=== PATIENT | male | born 1995 | race Caucasian/White ===

== ENCOUNTER → 2019-03-13 08:43 | Outpatient (BNVA) | payer MEDICAID, SELFPAY | PROVIDERS: Family Provider Nurse Practitioner; PCP Nurse Practitioner; Visit Provider Psychiatry & Neurology Psychiatry | DX: F90.1 Attention-deficit hyperactivity disorder, predominantly hyperactive type (principal); F84.0 Autistic disorder | CPT/HCPCS: 99213 ==

== ENCOUNTER → 2019-03-27 10:14 | Outpatient (BNVA) | payer MEDICAID, SELFPAY | PROVIDERS: Family Provider Nurse Practitioner; PCP Nurse Practitioner; Visit Provider Nurse Practitioner | DX: F90.1 Attention-deficit hyperactivity disorder, predominantly hyperactive type (principal); Z00.00 Encounter for general adult medical examination without abnormal findings; Z11.3 Encounter for screening for infections with a predominantly sexual mode of transmission | CPT/HCPCS: 80053; 80178; 85025; 86592 ==

== ENCOUNTER → 2019-06-01 07:26 | Outpatient (BNVA) | payer MEDICAID, SELFPAY | PROVIDERS: Family Provider Nurse Practitioner; PCP Nurse Practitioner; Visit Provider Psychiatry & Neurology Psychiatry | DX: F84.0 Autistic disorder (principal); F90.1 Attention-deficit hyperactivity disorder, predominantly hyperactive type | CPT/HCPCS: 99212 ==

== ENCOUNTER 2019-08-06 12:15 | Emergency (ER) | payer MEDICAID, SELFPAY | END 2019-08-06 18:10 | disposition admitted as inpatient to this hospital (09) | LOC: ER 08-07 02:24 | PROVIDERS: Emergency Provider Family Medicine; PCP Nurse Practitioner | DX: G40.801 Other epilepsy, not intractable, with status epilepticus (principal); J96.00 Acute respiratory failure, unspecified whether with hypoxia or hypercapnia; F84.0 Autistic disorder | CPT/HCPCS: 31500; 36415; 36600; 70450; 71045; 80053; 80306; 80307; 81001; 82803; 83605; 84145; 85025; 86140; 87040; 87070; 87205; 87635; 93005; 94002; 94799; 96365; 96366; 96367; 96368; 96375; 99284; 99291; J0330; J2704; J3490 ==

== ENCOUNTER 2019-08-06 12:15 | Inpatient (IN) | payer MEDICAID, SELFPAY ==
[2019-08-06] VITALS (31 sets, daily range): BP systolic 91–150; BP diastolic 10–89; PULSE 75–136; RESP 8–27; O2SAT 93–100
--- NOTE | 2019-08-06 12:26 | XRR_ITS ---
PROCEDURE INFORMATION: Exam: XR Chest, 1 View Exam date and time: 08/06/2019 12:53 PM Age: 24 years old Clinical indication: Other: Grand mal seizure TECHNIQUE: Imaging protocol: XR of the chest Views: 1 view. COMPARISON: No relevant prior studies available. FINDINGS: Lungs: Unremarkable. No consolidation. Pleural space: Unremarkable. No pleural effusion. No pneumothorax. Heart/Mediastinum: Unremarkable. No cardiomegaly. Bones/joints: Unremarkable. XR/XR chest 1V portable [id number] IMPRESSION: No acute findings.
--- NOTE | 2019-08-06 12:27 | ECG_ITS ---
[facility] Test Date: 2019-08-06 Pat Name: Bj Herron Department: Room: Gender: Male Chief Vendor Quality: : 1995 Requested By: Yessica Ramírez I Order Number: [id number] Clifford MD: Ramez Soto M.D. Measurements Intervals [place] Rate: 136 P: 48 MN: 126 QRS: -1 QRSD: 82 T: 46 QT: 284 QTc: 428 Interpretive Statements SINUS TACHYCARDIA POSSIBLE RIGHT VENTRICULAR CONDUCTION DELAY [RSR (QR) IN V1/V2] ABNORMAL RHYTHM ECG No previous ECG available for comparison Electronically Signed On 08-06-2019 21:13:56 CDT by Ramez Soto M.D. [email or web address] Over Heremercy health st. rita's medical centerFastPay/store/[id number]
--- NOTE | 2019-08-06 12:28 | ED_ITS ---
HPI - Seizure General: Chief Complaint: Seizure Stated Complaint: GRAND MAL SEIZURE Time Seen by Provider: 08/06/19 12:16 Source: EMS Mode of arrival: EMS Limitations: altered mental status History of Present Illness: HPI Narrative: Patient was brought in by EMS. He is a 24-year-old severely autistic gentleman who lives in a intermediate who had an episode of generalized tonic-clonic seizure today. According to them intermediate seizure lasted about 20 minutes. And he was still seizing when the ambulance got there. He was given 2 mg intravenously of lorazepam which aborted the seizure. Patient has been postictal/under the effect of sedation since. He has been hypoxic and needed oxygen in the ambulance. He has also been tachycardic. He had a temperature of about 101 per EMS. MD complaint: seizure Description of Episode: tonic-clonic movement Review of Systems General: Reports: ROS unobtainable due to mental status [facility] ED PFSH: Medical History ADHD (attention deficit hyperactivity disorder), predominantly hyperactive impulsive type Autism Surgical History No history of previous surgery Family History Other Diabetes Hypertension Social History Smoking and tobacco status: unknown if ever smoked Second hand smoke exposure: No Smoking risk assessment/counseling performed?: No Alcohol intake: never Desire information about alcohol rehabilitation?: No Counseling given: No Desire information about substance/drug rehabilitation?: No Counseling given: No Adopted: No Caregiver/support person: Yes Lives independently: No Household members: caregiver Housing: House Marital status: Single Number of children: 0 Highest education level completed: High School Graduate service: No Current occupational status: employed Current occupation: [employer] Pets and animals: No History of recent travel: No Sexually active: No Current gender identity: Male Special jerson needs: No Financial difficulty paying for basics: Not Very Hard Physical Exam Const: COMMON NORMALS: no acute distress, average body habitus, no limitations, healthy appearing and well nourished HENMT: COMMON NORMALS: normocephalic, atraumatic and moist oral mucous membranes HEAD & SCALP: normocephalic and atraumatic Eye: COMMON NORMALS: Equal, round and reactive pupils present, EOMs intact bilaterally, conjunctivae normal and no scleral icterus CONJUNCTIVA: Yes conjunctivae normal PUPIL: Yes Equal, round and reactive pupils present Neck/C-Spine: COMMON NORMALS: full ROM, supple, no meningeal signs, no JVD and No carotid bruits Chest: COMMONS NORMALS: normal inspection of the chest and normal palpation of entire chest wall Resp: COMMON NORMALS: normal respiratory effort, No retractions, No use of accessory muscles, clear to auscultation bilaterally and percussion normal AUSCULTATION: clear to auscultation bilaterally PERCUSSION: percussion normal Cardio: COMMON NORMALS: no JVD, regular rate, regular rhythm, S1 normal heart sound present, S2 normal heart sound present, No gallops present (Cardio), No clicks present (Cardio), No murmurs present (Cardio), No rub (Cardio) and Peripheral pulses 2+ throughout RATE: regular rate RHYTHM: regular rhythm HEART SOUNDS: S1 normal heart sound present and S2 normal heart sound present PERIPHERAL PULSES: Peripheral pulses 2+ throughout GI: COMMON NORMALS: Normal to inspection, nondistended, normoactive bowel sounds present, Soft to palpation, non-tender, No hepatosplenomegaly present, no masses and no bruits PALPATION: Yes Soft to palpation and Yes No hepatosplenomegaly present : COMMON NORMALS: Yes no CVA tenderness BLADDER/KIDNEY EXAM: Yes no CVA tenderness Back/Pelvis: COMMON NORMALS: no CVA tenderness Extremity: COMMON NORMALS: normal to inspection, full ROM, capillary refill normal, no calf tenderness and no pedal edema Neuro: VIVI COMA SCALE: document GCS findings Celoron coma scale eye opening: None Celoron coma scale verbal response: None Vivi coma scale motor response: Normal flexion Celoron coma scale total score: 6 MENINGEAL SIGNS: Yes no meningeal signs OTHER: Patient withdraws to pain only on his left upper and lower extremity. He does not move his right upper and lower extremity, query Fede's paralysis Skin: COMMON NORMALS: no rashes or lesions noted, no wounds, turgor normal, no jaundice, no petechiae and no mottling GENERAL SKIN EXAM: no rashes or lesions noted and turgor normal Procedures Intubation Time out performed: Yes sedative: Etomidate Mg Given: 27 paralytic: Succinylcholine Mg Given: 180 Laryngoscope: Patricia (Video-assisted) ET Tube Size: 8 ET Tube Uncuffed: Yes Tube Secured Depth (cm): 25 Tube Secured Location: lips Tube Placement Confirmation: visualized tube passing through cords, equal breath sounds bilaterally, no breath sounds over epigastrium and confirmation by capnometry Patient Tolerated Procedure: well Intubation Complications: none Course Consultations: Consultation #1: Dr. Das, hospitalist she kindly accepted the patient to her service Vital Signs: Vital signs: Vital Signs Pulse Rate 83 08/06/19 22:15 Respiratory Rate 12 08/06/19 22:15 Blood Pressure 116/79 08/06/19 22:15 Pulse Oximetry 100 08/06/19 22:15 MDM - Seizure MDM Narrative: Medical decision making narrative: 24-year-old gentleman who presented to the emergency department following an episode of status epilepticus. Seizure was aborted with 2 mg of intravenous lorazepam. The patient remained significantly tachycardic in the ED and his GCS was 6 on arrival. He was also hypoxic and hypercapnic and a decision was made to emergently intubate this patient as he could not protect his airway and he was in respiratory failure. The patient was admitted to the ICU for further evaluation and management. On the advice of the neurologist intravenous Keppra was started. Head CT negative other labs are unremarkable, initial lumbar puncture does not appear to be meningitic. Repeat blood gas showed marked improvement in his pH which became normal as well as his CO2. Medical Records: Attestation: I reviewed the patient's medical records. Lab Data: Attestation: I reviewed the patient's lab results. Labs: Lab Results 08/06/19 08/06/19 08/06/19 Range/Units 12:43 12:43 12:43 WBC (4.0-10.0) 10^3/ uL RBC (4.1-5.3) 10^6/u L Hgb (11.7-16.6) g/dL Hct (42.0-52.0) % MCV (80-94) fL MCH (28.0-34.0) pg MCHC (30.0-36.0) g/dL RDW (12.1-15.1) % Plt Count (130-400) 10^3/c mm MPV (7.4-10.4) fL Neut % (Auto) % Lymph % (Auto) % Real % (Auto) % Eos % (Auto) % Baso % (Auto) % Neut # (Auto) (1.8-7.7) 10^3/u L Lymph # (Auto) (0.8-4.8) 10^3/u L Real # (Auto) (0.2-0.9) 10^3/u L Eos # (Auto) (0.0-0.8) 10^3/u L Baso # (Auto) (0.0-0.1) 10^3/u L Nucleated RBC % (a uto) % Nucleated RBCs # /100WBC Specimen Type Arterial Sample Site Brachial, right ABG pH 7.18 L* (7.35-7.45) ABG pCO2 64.7 H* (35-45) mmHg ABG pO2 99.8 (80.0-100.0) mmH g ABG HCO3 23.9 (22-26) mmol/L ABG Base Excess -6.1 L (-2.0-2.0) mmol/ L Jostin Test Pos Hematocrit 48.9 (42-52) % O2 Delivery Device Nc O2 Liters/Min 2.0 % FiO2 28.0 % Claim Rep ID ed Sodium (136-145) mmol/L Potassium (3.5-5.1) mmol/L Chloride (98-107) mmol/L Carbon Dioxide (22-29) mmol/L Anion Gap (5-19) BUN (6-20) mg/dL Creatinine (0.7-1.2) mg/dL GFR Calculation (90-130) mL/min Glucose (65-115) mg/dL Calculated Osmolal ity (285-295) mOsm/k g Lactate (0.5-2.2) mmol/L Calcium (8.5-10.5) mg/dL Total Bilirubin (0.15-1.2) mg/dL AST (0-40) U/L ALT (0-41) U/L Alkaline Phosphata se (40-130) IU/L C-Reactive Protein (0.0-4.9) mg/L Total Protein (6.6-8.7) g/dL Albumin (3.5-5.2) g/dL Globulin (1.3-4.6) g/dL Procalcitonin (0-0.5) ng/mL Urine Color Yellow (Yellow) Urine Appearance Clear (CLEAR) Urine pH 6 (5-7) Ur Specific Gravit y 1.020 (1.005-1.030) Urine Protein Trace (Negative) Urine Glucose (UA) Norm (Normal) Urine Ketones 1+ H (Negative) Urine Blood Trace H (Negative) Urine Nitrate Negative (Negative) Urine Bilirubin Neg (NEGATIVE) Urine Urobilinogen Neg (Negative) mg/dL Ur Leukocyte Magdalena ase Negative (Negative) Urine RBC 0-4 H (0-2) /hpf Urine WBC None (0-5) /hpf Ur Squamous Epith Cells None (0-5) Amorphous Sediment Not Reportable Urine Bacteria Trace (NONE) Hyaline Casts 0-4 H Urine Mucus 2+ Salicylates (3-10) mg/dL Urine Opiates Scre en Negative (Negative) ng/mL Acetaminophen (10-30) ug/mL Ur Barbiturates Sc reen Negative (Negative) ng/mL Ur Phencyclidine S crn Negative (Negative) ng/mL Ur Amphetamines Sc reen Negative (Negative) ng/mL U Benzodiazepines Scrn Negative (Negative) ng/mL Urine Cocaine Scre en Negative (Negative) ng/mL U Marijuana (THC) Screen Negative (Negative) ng/mL Ethyl Alcohol (0-10) mg/dL 08/06/19 08/06/19 08/06/19 Range/Units 13:09 13:09 13:09 WBC 12.3 H (4.0-10.0) 10^3/ uL RBC 5.57 H (4.1-5.3) 10^6/u L Hgb 15.6 (11.7-16.6) g/dL Hct 47.9 (42.0-52.0) % MCV 86.0 (80-94) fL MCH 28.0 (28.0-34.0) pg MCHC 32.6 (30.0-36.0) g/dL RDW 12.2 (12.1-15.1) % Plt Count 122 L (130-400) 10^3/c mm MPV 10.9 H (7.4-10.4) fL Neut % (Auto) 83.8 % Lymph % (Auto) 4.6 % Real % (Auto) 9.2 % Eos % (Auto) 0.1 % Baso % (Auto) 0.2 % Neut # (Auto) 10.3 H (1.8-7.7) 10^3/u L Lymph # (Auto) 0.6 L (0.8-4.8) 10^3/u L Real # (Auto) 1.1 H (0.2-0.9) 10^3/u L Eos # (Auto) 0.0 (0.0-0.8) 10^3/u L Baso # (Auto) 0.0 (0.0-0.1) 10^3/u L Nucleated RBC % (a uto) 0 % Nucleated RBCs # 0.0 /100WBC Specimen Type Sample Site ABG pH (7.35-7.45) ABG pCO2 (35-45) mmHg ABG pO2 (80.0-100.0) mmH g ABG HCO3 (22-26) mmol/L ABG Base Excess (-2.0-2.0) mmol/ L Jostin Test Hematocrit (42-52) % O2 Delivery Device O2 Liters/Min % FiO2 % Claim Rep ID Sodium 140 (136-145) mmol/L Potassium 4.5 (3.5-5.1) mmol/L Chloride 105 (98-107) mmol/L Carbon Dioxide 21 L (22-29) mmol/L Anion Gap 18.5 (5-19) BUN 7 (6-20) mg/dL Creatinine 0.6 L (0.7-1.2) mg/dL GFR Calculation 165.5 H (90-130) mL/min Glucose 178 H (65-115) mg/dL Calculated Osmolal ity 290 (285-295) mOsm/k g Lactate 1.8 (0.5-2.2) mmol/L Calcium 8.2 L (8.5-10.5) mg/dL Total Bilirubin 0.3 (0.15-1.2) mg/dL AST 25 (0-40) U/L ALT 23 (0-41) U/L Alkaline Phosphata se 47 (40-130) IU/L C-Reactive Protein 0.3 (0.0-4.9) mg/L Total Protein 6.8 (6.6-8.7) g/dL Albumin 4.0 (3.5-5.2) g/dL Globulin 2.8 (1.3-4.6) g/dL Procalcitonin 0.04 (0-0.5) ng/mL Urine Color (Yellow) Urine Appearance (CLEAR) Urine pH (5-7) Ur Specific Gravit y (1.005-1.030) Urine Protein (Negative) Urine Glucose (UA) (Normal) Urine Ketones (Negative) Urine Blood (Negative) Urine Nitrate (Negative) Urine Bilirubin (NEGATIVE) Urine Urobilinogen (Negative) mg/dL Ur Leukocyte Magdalena ase (Negative) Urine RBC (0-2) /hpf Urine WBC (0-5) /hpf Ur Squamous Epith Cells (0-5) Amorphous Sediment Urine Bacteria (NONE) Hyaline Casts Urine Mucus Salicylates < 0.3 L (3-10) mg/dL Urine Opiates Scre en (Negative) ng/mL Acetaminophen < 5.0 L (10-30) ug/mL Ur Barbiturates Sc reen (Negative) ng/mL Ur Phencyclidine S crn (Negative) ng/mL Ur Amphetamines Sc reen (Negative) ng/mL U Benzodiazepines Scrn (Negative) ng/mL Urine Cocaine Scre en (Negative) ng/mL U Marijuana (THC) Screen (Negative) ng/mL Ethyl Alcohol < 10 (0-10) mg/dL Imaging Data^: CT Head: Radiologist's impression: [place] [address] CT Scan Report Signed Patient: Bj Herron Jd #: [id number] : 1995Acct#:[id number] Age/Sex: 24 / MADM Date: 08/06/19 Loc: ERRoom/Bed: Attending Dr: Ordering Provider/Ordering MD: Yessica Ramírez MD, [facility] [place] Date of Service: 08/06/19 Procedure(s): CT head wo con* [id number] Accession Number(s): [id number] Report Number: [id number] PROCEDURE INFORMATION: Exam: CT Head Without Contrast Exam date and time: 08/06/2019 12:45 PM Age: 24 years old Clinical indication: Patient HX: History of seizures; Additional info: Seizure TECHNIQUE: Imaging protocol: Computed tomography of the head without contrast. Axial, coronal and sagittal reformatted images were created and reviewed. Radiation optimization: All CT scans at this facility use at least one of these dose optimization techniques: automated exposure control; mA and/or kV adjustment per patient size (includes targeted exams where dose is matched to clinical indication); or iterative reconstruction. COMPARISON: No relevant prior studies available. RADIATION DOSE METRICS: Total DLP (mGy-cm): 1484.92 FINDINGS: Brain: No CT evidence of acute intracranial hemorrhage or acute territorial infarction. No significant mass effect or midline shift. Basal cisterns patent. Ventricles: Normal in size and configuration. Bones/joints: No acute osseous abnormality. Sinuses: Mild ethmoid mucosal thickening. Mastoid air cells: Grossly unremarkable. Soft tissues: Grossly unremarkable. CT/CT head wo con* [id number]: 1[address] No CT evidence of acute intracranial pathology. 2. Additional findings, as above. Radiation Dose CTDIVOL = (mGy): DLP = 1484.92 (mGy-cm) Dictated By:Vinicius Haines MD Signed By:Vinicius Haines MDSigned Date/Time:08/06/191515 DD/ 1515 CXR: Radiologist's impression: [place] [address] XRay Report Signed Patient: Bj Herron #: [id number] : 1995Acct#:[id number] Age/Sex: 24 / MADM Date: 08/06/19 Loc: ERRoom/Bed: Attending Dr: Ordering Provider/Ordering MD: Yessica Ramírez MD, [facility] [place] Date of Service: 08/06/19 Procedure(s): XR chest 1V portable [id number] Accession Number(s): [id number] Report Number: [id number] PROCEDURE INFORMATION: Exam: XR Chest, 1 View Exam date and time: 08/06/2019 2:37 PM Age: 24 years old Clinical indication: Device placement; Additional info: Post intubation TECHNIQUE: Imaging protocol: XR of the chest Views: 1 view. COMPARISON: CR XR chest 1V portable [id number] 08/06/2019 12:43 PM FINDINGS: Lungs: Unremarkable. No consolidation. Pleural space: Unremarkable. No pleural effusion. No pneumothorax. Heart/Mediastinum: Unremarkable. No cardiomegaly. Bones/joints: Unremarkable. Endotracheal tube is in place the tip is 13 mm above the tammy NG tube extends into the stomach XR/XR chest 1V portable [id number] IMPRESSION: No acute findings. Endotracheal tube is in place as described. NG tube is in the stomach Dictated By:Thanh Azul Signed By:Krystal Azul Date/Time:08/06/191456 DD/ 54 EKG Data^: EKG 1: Attestation: I personally reviewed and interpreted this EKG as follows: EKG interpretation date: 08/06/19 EKG interpretation time: 12:31 Prior EKG tracings: not available for review Interpretation: Sinus tachycardia. Heart rate [address] changes. Normal axis. Critical Care Time Critical Care Time: Critical Care Time: Yes Total Critical Care Time: 30 Attestation: This case had a high probability of a clinically significant, sudden, or life threatening deterioration of this patient's condition which required my full and direct attention, intervention and personal management. Discharge Plan Discharge Patient Disposition: Admitted As Inpatient Admit Provider: Asiya Das Clinical Impression: Status epilepticus, Acute respiratory failure Condition: Stable Interventions: ED Discharge Assessment Last Done: 08/06/19 18:17 ED Charges Last Done: 08/06/19 18:17 Discharge Date/Time: 08/06/19 18:10 Coding Level of Care Code ED [place] [facility] for Chg Fwd Exam Comprehensive
[2019-08-06 12:54] LABS: ABG PCO2 64.7 mmHg (35-45); ABG PH Result 7.18 (7.35-7.45); Arterial Blood Gas Hematocrit 48.9 % (42-52); Base Excess ABG -6.1 mmol/L (-2.0-2.0); Blood Gas Allen Test Pos; Blood Gas Sample Site Brachial, right; Blood Gas Sample Type Arterial; HCO3 ABG 23.9 mmol/L (22-26); Oxygen Device NC; PO2 ABG 99.8 mmHg (80.0-100.0)
[2019-08-06 13:07] LABS: Add Urine Microscopic? YES; Bilirubin Urine Neg (NEGATIVE); Blood Urine Trace (Negative); Glucose Urine UA Norm (Normal); Ketones Urine 1+ (Negative); Leukocyte Esterase Urine Negative (Negative); Nitrate Urine Negative (Negative); Protein Urine Trace (Negative); Urine Appearance Clear (CLEAR); Urine Color Yellow (Yellow); Urobilinogen Urine Neg (Negative); pH Urine 6 (5-7)
--- NOTE | 2019-08-06 13:15 | PC.NURSE ---
Pt moved to room [address] Ramírez. Report given to THERESA Oviedo.
[2019-08-06 13:16] LABS: Amphetamines Screen Urine Negative (Negative); Barbiturates Screen Urine Negative (Negative); Benzodiazepines Screen Urine Negative (Negative); Cocaine Screen Urine Negative (Negative); Opiate Screen Urine Negative (Negative); PCP Screen Urine Negative (Negative); THC Screen Urine Negative (Negative)
[2019-08-06 13:19] LABS: Add Urine Culture? No; Bacteria Urine TRACE; Hyaline Casts Urine 0-4; Mucus Urine 2+; RBC Urine 0-4 /hpf (0-2)
[2019-08-06 13:22] LABS: Basophils % 0.2 %; Eosinophils % 0.1 %; Hematocrit 47.9 % (42.0-52.0); Hemoglobin 15.6 g/dL (11.7-16.6); Lymphocytes # 0.6 10^3/uL (0.8-4.8); Lymphocytes % 4.6 %; Mean Corpuscular HGB Conc 32.6 g/dL (30.0-36.0); Mean Platelet Volume 10.9 fL (7.4-10.4); Monocytes # 1.1 10^3/uL (0.2-0.9); Monocytes % 9.2 %; Neutrophils # 10.3 10^3/uL (1.8-7.7); Neutrophils % 83.8 %; Nucleated Red Blood Cells % 0 %; Platelet Count 122 10^3/cmm (130-400); Red Blood Count 5.57 10^6/uL (4.1-5.3); Red Cell Distribution Width 12.2 % (12.1-15.1); White Blood Count 12.3 10^3/uL (4.0-10.0)
--- NOTE | 2019-08-06 13:26 | XRR_ITS ---
PROCEDURE INFORMATION: Exam: XR Chest, 1 View Exam date and time: 08/06/2019 2:37 PM Age: 24 years old Clinical indication: Device placement; Additional info: Post intubation TECHNIQUE: Imaging protocol: XR of the chest Views: 1 view. COMPARISON: CR XR chest 1V portable [id number] 08/06/2019 12:43 PM FINDINGS: Lungs: Unremarkable. No consolidation. Pleural space: Unremarkable. No pleural effusion. No pneumothorax. Heart/Mediastinum: Unremarkable. No cardiomegaly. Bones/joints: Unremarkable. Endotracheal tube is in place the tip is 13 mm above the tammy NG tube extends into the stomach XR/XR chest 1V portable [id number] IMPRESSION: No acute findings. Endotracheal tube is in place as described. NG tube is in the stomach
[2019-08-06] MEDS: propofol 1,000 MG/100 ML INJ 0.1 MG IV (13:29)
[2019-08-06 13:36] LABS: Lactate (Lactic Acid level) 1.8 mmol/L (0.5-2.2)
[2019-08-06 13:45] LABS: Procalcitonin 0.04 ng/mL (0-0.5)
--- NOTE | 2019-08-06 13:53 | PC.NURSE ---
Nurse collected a second UA, sent to lab.
[2019-08-06 13:57] LABS: Acetaminophen < 5.0 ug/mL (10-30); Alanine Aminotransferase 23 U/L (0-41); Alcohol Level < 10 mg/dL (0-10); Alkaline Phosphatase 47 IU/L (40-130); Anion Gap 18.5 (5-19); Aspartate Amino Transferase 25 U/L (0-40); Blood Urea Nitrogen 7 mg/dL (6-20); C Reactive Protein 0.3 mg/L (0.0-4.9); Calcium 8.2 mg/dL (8.5-10.5); Carbon Dioxide 21 mmol/L (22-29); Chloride 105 mmol/L (98-107); Globulin 2.8 g/dL (1.3-4.6); Glomerular Filtration Rate 165.5 mL/min (90-130); Glucose 178 mg/dL (65-115); Osmolality Calculated 290 mOsm/kg (285-295); Potassium 4.5 mmol/L (3.5-5.1); Salicylate < 0.3 mg/dL (3-10); Sodium 140 mmol/L (136-145); Total Bilirubin 0.3 mg/dL (0.15-1.2); Total Protein 6.8 g/dL (6.6-8.7)
[2019-08-06] MEDS: succinylcholine 20 mg/mL SDV 10mL 180 MG IVP (14:32)
[2019-08-06] MEDS: propofol 10 mg/mL SDV 20 mL IVP (16:17)
--- NOTE | 2019-08-06 16:19 | FL_ITS ---
WS: [id number] LUMBAR PUNCTURE UNDER FLUOROSCOPY: OBTAIN CSF FOR ANALYSIS HISTORY: seizure, fever COMPARISON: None available. FLUOROSCOPY TIME: 0.6 minutes. Patient was intubated for this procedure. Recent laboratory work and medication are reviewed prior t o procedure. Skin over the lumbar is cleansed with ChloraPrep and anesthetized with 1% buffered lidocaine. Access into the thecal sac is achieved. CSF is removed in a sterile manner and placed in the sterile tubes. Approximately 10 ml is removed without difficulty. CSF is clear. No complications are encountered. CSF this into the laboratory for analysis as requested. FL/FL guided lumbarpunc dx* [id number] IMPRESSION: Uncomplicated lumbar puncture for CSF. CSF collected and sent for analysis as requested.
--- NOTE | 2019-08-06 17:12 | PC.NURSE ---
Pt to radiology for lumbar puncture. Accompanied by RTx2 and pt care nurse.
[2019-08-06 17:16] LABS: ABG PCO2 37.6 mmHg (35-45); Arterial Blood Gas Hematocrit 49.9 % (42-52); Base Excess ABG -1.4 mmol/L (-2.0-2.0); Blood Gas Allen Test Pos; Blood Gas Sample Site Radial, right; Blood Gas Sample Type Arterial; Blood Gas Tidal Volume 0.5; HCO3 ABG 23.1 mmol/L (22-26); Oxygen Device VENT
--- NOTE | 2019-08-06 18:00 | P.HP_ITS ---
Providers/Chief Complaint Admitting Physician: Asiya Das MD Primary Care Provider: Harry Valentin, MEDICAL APPOINTMENT SCHEDULER-C Chief Complaint: GRAND MAL SEIZURE History of Present Illness Bj Herron is a 24 year old male with PMHx of Autism and associated behavioral issues, ADHD, presents via EMS for evaluation of noted and witnessed seizure-like activity earlier today. History is obtained from ER staff as well as mother at bedside as patient is currently on mechanical ventilation. It seems that patient was having seizure-like activity at the assisted living facility/alf where he resides earlier this afternoon, unknown duration, was still seizing when EMS arrived. Received a 2 mg dose of Ativan en route to the hospital and seemed to be altered and almost postictal on his arrival to the ER. Subsequent labs including ABG showed significant respiratory acidosis with a pH of 7.18 and a PCO2 of 64. Given patient's mental status, witnessed seizure-like episode and need for airway protection he was subsequently intubated. It is reported that patient had a fever but I am unclear of how high his temperature was at this time. Labs indicate leukocytosis with a white count of 12.3, thrombocytopenia with a platelet count of 122, normal chemistry other than a blood glucose of 178, lactate of 1.8, urinalysis that is positive for blood and trace bacteria, urine drug screen, alcohol, salicylates and acetaminophen all of which are negative. CT scan of the head is unremarkable. Chest x-ray is unremarkable though confirms placement of ETT and OGT. He is currently on sedation with propofol. I have requested neurology consultation and ER physician is working with Dr. Joaquin who recommends loading the patient with Keppra and lumbar puncture which radiology is currently prepping for. I will cover him empirically with broad-spectrum antibiotics. COVID-19 testing has been ordered as well in light of his symptoms. Patient is being admitted for further management and will require ICU care. Review of Systems 2 General: Reports: ROS unobtainable due to endotracheal tube and ROS unobtainable due to mental status Const: Reports: fever(s) Neuro: Reports: seizure-like activity Medications/Allergies Home Medications Medication Instructions Recorded Confirmed Last Taken Type L.acidophil,parac-S.therm-Bif. 8 1 cap PO DAILY 03/13/19 08/06/19 Unknown History billion cell capsule acetaminophen 325 mg tablet 650 mg PO Q6H PRN 03/13/19 08/06/19 Unknown History benztropine 0.5 mg tablet 0.5 mg PO BID #60 tab 03/13/19 08/06/19 Unknown Rx guanfacine 4 mg tablet,extended 4 mg PO QAM #30 tab 03/13/19 08/06/19 Unknown Rx release 24 hr ibuprofen 200 mg tablet 400 mg PO Q6H PRN tab 03/13/19 08/06/19 Unknown History loratadine 10 mg tablet 10 mg PO DAILY 03/13/19 08/06/19 Unknown History sodium chloride 0.65 % nasal spray 1 - 2 spray INTRANASAL Q2H PRN ml 03/13/19 08/06/19 Unknown History aerosol Milk of Magnesia See Rx Instructions .ROUTE 08/06/19 08/06/19 Unknown History .COMPLEX PRN bacitracin zinc-polymyxin B See Rx Instructions .ROUTE .COMPLEX 08/06/19 08/06/19 Unknown History [Polysporin (bacitracin zinc)] benzocaine-triclosan [Solarcaine] See Rx Instructions .ROUTE .COMPLEX 08/06/19 08/06/19 Unknown History clindamycin-benzoyl peroxide 1 applic TOPICAL BID 08/06/19 08/06/19 Unknown History [Benzaclin] dextromethorphan polistirex 10 ml PO Q12H PRN 08/06/19 08/06/19 Unknown History [Delsym 12 hour] divalproex See Rx Instructions .ROUTE .COMPLEX 08/06/19 08/06/19 Unknown History fluoride (sodium) [Denta 5000 Plus] See Rx Instructions .ROUTE .COMPLEX 08/06/19 08/06/19 Unknown History olanzapine 15 mg PO TID 08/06/19 08/06/19 Unknown History olanzapine See Rx Instructions .ROUTE .COMPLEX 08/06/19 08/06/19 Unknown History phenol-phenolate sodium [Sore See Rx Instructions .ROUTE .COMPLEX 08/06/19 08/06/19 Unknown History Throat] nthqchzcpmkdm-NK-dqbdfoonsxtvq 2 tab PO Q4H PRN 08/06/19 08/06/19 Unknown History [Tylenol Cold Multi-Symptom Day] vitamin E 800 unit PO DAILY 08/06/19 08/06/19 Unknown History Allergies Allergy/AdvReac Type Severity Reaction Status Date / Time hydrocodone Allergy Unknown Verified 03/04/19 10:26 PFSH Acute PFSH: Medical History ADHD (attention deficit hyperactivity disorder), predominantly hyperactive impulsive type Autism Surgical History No history of previous surgery Family History Other Diabetes Hypertension Social History Smoking and tobacco status: unknown if ever smoked Second hand smoke exposure: No Smoking risk assessment/counseling performed?: No Alcohol intake: never Desire information about alcohol rehabilitation?: No Counseling given: No Desire information about substance/drug rehabilitation?: No Counseling given: No Adopted: No Caregiver/support person: Yes Lives independently: No Household members: caregiver Housing: House Marital status: Single Number of children: 0 Highest education level completed: High School Graduate service: No Current occupational status: employed Current occupation: [employer] Pets and animals: No History of recent travel: No Sexually active: No Current gender identity: Male Special jerson needs: No Financial difficulty paying for basics: Not Very Hard Vitals/I&O/Wt Last Vital Signs Pulse 118 H 08/06/19 12:49 Resp 18 08/06/19 17:06 BP 150/10 08/06/19 12:49 Pulse Ox 98 08/06/19 17:06 08/06/19 08/06/19 08/06/19 06:59 14:59 22:59 Intake Total 0.613 / 0.613 36.033 / 36.646 Balance 0.613 / 0.613 36.033 / 36.646 Weight last 48 hrs Weight 2.466 kg Physical Exam Const: GENERAL APPEARANCE: patient mechanically ventilated OTHER: -sedated thouogh restless HENMT: COMMON NORMALS: normocephalic, atraumatic and moist oral mucous membranes HEAD & SCALP: normocephalic and atraumatic TEETH & GINGIVA: Yes poor dentition OTHER: -orally intubated Eye: COMMON NORMALS: Equal, round and reactive pupils present, EOMs intact bilaterally and conjunctivae normal CONJUNCTIVA: Yes conjunctivae normal PUPIL: Yes Equal, round and reactive pupils present Neck/C-Spine: COMMON NORMALS: full ROM GENERAL: Yes normal visual inspection and Yes trachea midline Chest: CHEST: Yes Symmetrical chest wall rise Resp: COMMON NORMALS: normal respiratory effort, No retractions, No use of accessory muscles and clear to auscultation bilaterally EFFORT & INSPECTION: Yes symmetric chest movement and No tachypneic AUSCULTATION: clear to auscultation bilaterally OTHER: -on vent support (100%/500/5) Cardio: COMMON NORMALS: regular rate, regular rhythm, S1 normal heart sound present, S2 normal heart sound present and No murmurs present (Cardio) RATE: regular rate RHYTHM: regular rhythm HEART SOUNDS: S1 normal heart sound present and S2 normal heart sound present GI: COMMON NORMALS: Normal to inspection, nondistended, normoactive bowel sounds present, Soft to palpation and non-tender PALPATION: Yes Soft to palpation : BLADDER/KIDNEY EXAM: Yes catheter in place Catheter type (Male): urethral Extremity: COMMON NORMALS: normal to inspection, full ROM, no clubbing, cyanosis or edema and no pedal edema Neuro: COMMON NORMALS: moves all extremities OTHER: -sedated with propofol @ 30 mcg/kg/min Psych: OTHER: -sedated Skin: COMMON NORMALS: no rashes or lesions noted, no jaundice, no petechiae and no mottling GENERAL SKIN EXAM: no rashes or lesions noted Urinary Catheter Management^: Marina: Cath Placed During This Visit: yes Urethral Indwelling: Yes Reason for Continuing Indwelling Catheter: Accurate Measurement of Urinary Output in Critically Ill Patients Urinary Catheter Date of Insertion: 08/06/19 Data : 08/06/19 13:09 08/06/19 13:09 Micro: Microbiology 08/06/19 13:49 Gram Stain - Final Sputum - Endotracheal Tube Aspirate 08/06/19 13:13 Blood Culture - Preliminary Blood SPECIMEN COLLECTED 08/06/19 13:09 Blood Culture - Preliminary Blood SPECIMEN COLLECTED A&P Assessment and plan (1) Acute respiratory failure with hypoxia: -Noted to be quite hypoxic in the field, confirmed on ABG with noted hypercapnia and respiratory acidosis (7.18/64/95.8) -sedated with propofol -CXR unremarkable in terms of infection, ETT and OGT positions confirmed -Anticipate being able to wean in the next 24 to 48 hours -Daily CXR, ABG while on vent support -Unclear if hypoxia triggered seizure-like activity or if it is a result of the seizure-like activity -Patient has no known history of any underlying respiratory illness, not oxygen dependent at baseline -Follow-up sputum culture, Gram stain is polymicrobial -COVID-19 testing ordered secondary to patient's symptoms and fever, isolation precautions Status: Acute (2) Seizure: -Witnessed seizure earlier today, first-time event per mother at bedside -Unclear trigger -Given dose of Ativan by EMS on their arrival and was quite somnolent and not really following commands on arrival here -With resulting hypoxia, and noted respiratory acidosis patient was intubated for airway protection -ED physician spoke with Dr. Joaquin who recommended loading with Keppra 1000 mg 3 times daily x24 hours then 1000 mg twice daily thereafter as well as LP as patient was noted to have a fever and a leukocytosis with first-time seizure like episode -We will cover empirically with ampicillin and ceftriaxone for possible meningitis; on isolation precautions -Cultures ordered -Patient currently in radiology for lumbar puncture -Head CT unremarkable -Noted leukocytosis, trend WBC -UDS negative, negative for salicylates and acetaminophen, negative for alcohol Status: Acute (3) ADHD (attention deficit hyperactivity disorder), predominantly hyperactive impulsive type: -f/u at [facility] Status: Chronic (4) Autism: -Lives in alf ([facility]) with 24/7 caregivers -anticipate that will need caregiver present with patient for weaning process and while off vent due to patient's underlying cognitive impairment and behavioral issues Status: Chronic Additional A&P Information -NPO while on vent -DVT ppx with Lovenox -GI ppx with PPI -Dispo: return to [facility]; has lived there x 10 yrs -Code status: FULL code -ICU admission due to vent support, need for isolation precautions Attestations Medical Necessity Statement*: Bj Herron's hospital stay will require greater than 2 midnights for management of an acute hypoxic and hypercapnic respiratory failure with noted seizure-like activity, on ventilator support, broad-spectrum IV antibiotics, status post lumbar puncture and prophylactic antiseizure medications. Time Spent in Patient Care: Greater than 35 minutes (>than 50% of time spent in counselling and/or direct pt care on unit) . Critical Care Time: The high probability of a clinically significant, sudden or life threatening deterioration of the patient's [cardiovascular, respiratory] system(s) required my full and direct attention, intervention and personal management. The critical care time is as shown. This time is in addition to time spent performing any reported procedures but includes the following: [x] Data and vital sign review and interpretation [x] Patient assessment, examination and intervention [x] Documentation [x] Medication orders and management Critical Care Time (min): 30 Coding Level of Care Code Acute Supervisor Sewing Department for [facility] Fwd Diagnoses Acute respiratory failure with hypoxia J96.01 Seizure R56.9 ADHD (attention deficit hyperactivity disorder), predominantly hyperactive impu lsive type F90.1 Autism F84.0
[2019-08-06 18:09] LABS: CSF Mononuclear # 0.001 10^3/uL (50-90); Mononuclear WBC CSF % 100 % (50-90); Polynuclear WBC CSF % 0 % (0-10); Red Blood Cell CSF 0 10^3/uL (0-0); White Blood Cell CSF 1 /uL (0-5)
[2019-08-06 18:15] LABS: Appearance CSF CLEAR (CLEAR); Color CSF COLORLESS (COLORLESS); Glucose CSF 84 mg/dL (40-70)
[2019-08-06] MEDS: propofol 1,000 MG/100 ML INJ 25 MG (18:15)
[2019-08-06 19:52] LABS: INR 0.94 (0.8-1.2)
[2019-08-06] MEDS: enoxaparin 40 mg/0.4 mL Syringe SUBCUT (20:20)
[2019-08-06] MEDS: ampicillin 2,000 MG in sodium chloride 0.9% (plus) 50 ML 100 MG IV (20:21)
[2019-08-06] MEDS: sodium chloride 0.45% 1,000 ML 75 ML IV (20:21)
[2019-08-06] MEDS: cefTRIAXone 2,000 MG in sodium chloride 0.9% (plus) 50 ML 100 MG IV (21:18)
[2019-08-07] VITALS (90 sets, daily range): BP systolic 84–132; BP diastolic 44–99; PULSE 46–106; RESP 10–16; TEMP 35.5–36.6; O2SAT 98–100
[2019-08-07] MEDS: ampicillin 2,000 MG in sodium chloride 0.9% (plus) 50 ML 100 MG IV ×4 (01:15→17:28)
--- NOTE | 2019-08-07 05:17 | PC.NURSE ---
SHIFT SUMMARY PT HAS REMAINED SEDATED. AT TIMES PT WILL FIGHT THE VENT, BUT WILL CALM BACK DOWN WITHIN A FEW MINUTES. PT HAS BEEN TURNED NEEDED, PT IS RESTLESS AT TIMES AND SHIFTS HIS WEIGHT. PT IVS REMAINS PATENT. PT IS MAXED ON SEDATION, PRESSURE IS HOLDING. NO SKIN BREAKDOWN NOTED. CATHETER CARE WAS DONE FOR PATIENT. PT HAD ADEQUATE URINE OUTPUT.
--- NOTE | 2019-08-07 06:00 | XR_ITS ---
WS: [id number] PORTABLE CHEST HISTORY: on vent support COMPARISON: 08/06/2019 Endotracheal tube is in good position. Nasogastric tube is also present with tip below the GE junctio n. Very slight volume loss in the RIGHT thorax. Mild atelectasis along the RIGHT paratracheal region. Pa tient is also significantly rotated to the RIGHT. No pleural effusion or pneumothorax. Cardiac size: Normal. Mediastinum/Aorta: Normal mediastinum. No osseous abnormality seen. XR/XR chest 1V portable [id number] IMPRESSION: 1. Study limited by rotation. 2. Endotracheal tube and nasogastric tube in good position. 3. Minimal atelectasis medial RIGHT upper lung.
[2019-08-07 06:04] LABS: ABG PCO2 34.5 mmHg (35-45); ABG PH Result 7.46 (7.35-7.45); Base Excess ABG 1.1 mmol/L (-2.0-2.0); Blood Gas Allen Test Pos; Blood Gas Sample Site Radial, right; Blood Gas Sample Type Arterial; Blood Gas Tidal Volume 0.5; HCO3 ABG 24.5 mmol/L (22-26); Oxygen Device VENT
[2019-08-07 06:07] LABS: Basophils % 0.1 %; Hematocrit 46.8 % (42.0-52.0); Hemoglobin 15.1 g/dL (11.7-16.6); Lymphocytes # 1.7 10^3/uL (0.8-4.8); Lymphocytes % 19.9 %; Mean Corpuscular HGB Conc 32.3 g/dL (30.0-36.0); Mean Corpuscular Hemoglobin 27.9 pg (28.0-34.0); Mean Corpuscular Volume 86.5 fL (80-94); Monocytes % 12.2 %; Neutrophils # 5.6 10^3/uL (1.8-7.7); Neutrophils % 67.4 %; Nucleated Red Blood Cells % 0 %; Platelet Count 121 10^3/cmm (130-400); Red Blood Count 5.41 10^6/uL (4.1-5.3); Red Cell Distribution Width 12.6 % (12.1-15.1); White Blood Count 8.3 10^3/uL (4.0-10.0)
[2019-08-07 07:21] LABS: Anion Gap 14.2 (5-19); Blood Urea Nitrogen 8 mg/dL (6-20); Calcium 9.1 mg/dL (8.5-10.5); Carbon Dioxide 23 mmol/L (22-29); Chloride 102 mmol/L (98-107); Glomerular Filtration Rate 204.3 mL/min (90-130); Glucose 98 mg/dL (65-115); Magnesium 1.7 mg/dL (1.7-2.3); Osmolality Calculated 278 mOsm/kg (285-295); Potassium 3.2 mmol/L (3.5-5.1); Sodium 136 mmol/L (136-145)
[2019-08-07] MEDS: sodium chloride 0.45% 1,000 ML 75 ML IV (08:17)
[2019-08-07] MEDS: propofol 1,000 MG/100 ML INJ 30 MG IV (08:18)
[2019-08-07] MEDS: pantoprazole 40 mg SDV IVP (08:19)
--- NOTE | 2019-08-07 08:23 | P.PN_ITS ---
Subjective Subjective: Interval history: Remains on vent support, increased sedation overnight with propofol and addition of fentanyl. FiO2-30%, afebrile, hemodynamically stable, had 550 mL urine output overnight. COVID-19 test results pending so remains on isolation precautions. CSF results noted, gram stain negative, culture pending. Medications: Reviewed: Yes Medication Review Details: Active Medications Generic Name Dose Route Start Last Admin Trade Name Freq PRN Reason Stop Dose Admin Acetaminophen 650 mg 08/06/19 18:39 Tylenol DE Q6H PRN FEVER Albuterol/Ipratrop ium 3 ml 08/06/19 21:00 Duoneb INHALATION Q6H.RESPIRATORY P RN SHORTNESS OF [place] TH Enoxaparin Sodium 40 mg 08/06/19 19:00 08/06/19 20:20 Lovenox SUBCUT 40 mg Q24H MARCOS Administration Propofol 1,000 mg in 100 m ls @ 0 mls/hr 08/06/19 13:15 08/07/19 08:18 Diprivan IV 2,027.58 mcg/kg/m in .Q0M MARCOS 30 mls/hr Administration Protocol Per Protocol Fentanyl 1,000 mcg / Sodium 100 mls @ 0 mls/h r 08/06/19 15:00 08/06/19 23:14 Chloride IV 50 mcg/hr .Q0M MARCOS 5 mls/hr Titration Protocol Per Protocol Levetiracetam 1,00 0 mg/ Sodium 110 mls @ 440 mls /hr 08/06/19 16:30 08/06/19 23:13 Chloride IV Infused TID MARCOS Infusion Sodium Chloride 1,000 mls @ 75 ml s/hr 08/06/19 18:39 08/07/19 08:17 Sodium Chloride 0.45% IV 75 mls/hr .[id number] MARCOS Administration Ceftriaxone Sodium 2,000 mg/ 50 mls @ 100 mls/ hr 08/06/19 19:30 08/06/19 23:13 Sodium Chloride IV Infused Q24H MARCOS Infusion Protocol Ampicillin Sodium 2,000 mg/ 50 mls @ 100 mls/ hr 08/06/19 19:30 08/07/19 08:16 Sodium Chloride IV 100 mls/hr Q6H MARCOS Administration Ondansetron HCl 4 mg 08/06/19 18:39 Zofran IVP Q6H PRN NAUSEA AND VOMITI NG Pantoprazole Sodiu m 40 mg 08/07/19 09:00 08/07/19 08:19 Protonix IVP 40 mg DAILY MARCOS Administration hydrocodone Allergy (Verified 03/04/19 10:26) Unknown Vitals/I&O/Wt Last Vital Signs Temp 97.7 F 08/07/19 03:00 Pulse 75 08/07/19 06:00 Resp 12 08/07/19 05:56 BP 128/94 08/07/19 06:00 Pulse Ox 100 08/07/19 06:00 08/06/19 08/07/19 08/07/19 22:59 06:59 14:59 Intake Total 209.387 / 210.000 375.333 / 585.333 895 / 895 Output Total 550 / 550 Balance 209.387 / 210.000 -174.667 / 35.333 895 / 895 Weight last 48 hrs Weight 76.6 kg Weight 2.466 kg Physical Exam Const: COMMON NORMALS: no acute distress GENERAL APPEARANCE: patient mechanically ventilated OTHER: -sedated HENMT: COMMON NORMALS: normocephalic, atraumatic and moist oral mucous membranes HEAD & SCALP: normocephalic and atraumatic TEETH & GINGIVA: Yes poor dentition OTHER: -orally intubated, ETT-25 cm @ lip Eye: COMMON NORMALS: Equal, round and reactive pupils present, EOMs intact bilaterally and conjunctivae normal CONJUNCTIVA: Yes conjunctivae normal PUPIL: Yes Equal, round and reactive pupils present Neck/C-Spine: GENERAL: Yes normal visual inspection and Yes trachea midline Chest: CHEST: Yes Symmetrical chest wall rise Resp: COMMON NORMALS: normal respiratory effort, No retractions, No use of accessory muscles and clear to auscultation bilaterally EFFORT & INSPECTION: Yes symmetric chest movement and No tachypneic AUSCULTATION: clear to auscultation bilaterally OTHER: -on vent support (30%/500/5) Cardio: COMMON NORMALS: regular rate, regular rhythm, S1 normal heart sound present, S2 normal heart sound present and No murmurs present (Cardio) RATE: regular rate RHYTHM: regular rhythm HEART SOUNDS: S1 normal heart sound present and S2 normal heart sound present GI: COMMON NORMALS: Normal to inspection, nondistended, normoactive bowel sounds present, Soft to palpation and non-tender PALPATION: Yes Soft to palpation : BLADDER/KIDNEY EXAM: Yes catheter in place Extremity: COMMON NORMALS: normal to inspection, full ROM, no clubbing, cyanosis or edema and no pedal edema Neuro: COMMON NORMALS: moves all extremities OTHER: -sedated with propofol @ 30 mcg/kg/min and fentanyl @ 5 mL/hr Psych: COMMON NORMALS: mental status grossly normal, Normal thought process present, cooperative, normal affect and speech normal SPEECH: Yes normal speech THOUGHT PROCESS: Normal thought process present OTHER: -sedated Skin: COMMON NORMALS: no rashes or lesions noted, no jaundice, no petechiae and no mottling GENERAL SKIN EXAM: no rashes or lesions noted Urinary Catheter Management^: Marina: Cath Placed During This Visit: yes Urethral Indwelling: Yes Reason for Continuing Indwelling Catheter: Accurate Measurement of Urinary Output in Critically Ill Patients Urinary Catheter Date of Insertion: 08/06/19 Data : 08/07/19 05:48 08/07/19 06:50 Micro: Microbiology 08/06/19 17:40 Gram Stain - Final Cerebrospinal Fluid 08/06/19 13:49 Gram Stain - Final Sputum - Endotracheal Tube Aspirate 08/06/19 13:13 Blood Culture - Preliminary Blood SPECIMEN COLLECTED 08/06/19 13:09 Blood Culture - Preliminary Blood SPECIMEN COLLECTED A&P Assessment and plan (1) Acute respiratory failure with hypoxia: -Noted to be quite hypoxic in the field, confirmed on ABG with noted hypercapnia and respiratory acidosis (7.18/64/95.8) -sedated with propofol and fentanyl -CXR unremarkable in terms of infection, ETT and OGT positions confirmed -Anticipate being able to wean in the next 24 to 48 hours once COVID-19 test results available -Daily CXR, ABG while on vent support -Unclear if hypoxia triggered seizure-like activity or if it is a result of the seizure-like activity -Patient has no known history of any underlying respiratory illness, not oxygen dependent at baseline -Follow-up sputum culture, gram stain is polymicrobial -COVID-19 testing ordered secondary to patient's symptoms and fever, isolation precautions Status: Acute (2) Seizure: -Witnessed seizure earlier today, first-time event per mother at bedside -Unclear trigger -Given dose of Ativan by EMS on their arrival and was quite somnolent and not really following commands on arrival here -With resulting hypoxia, and noted respiratory acidosis patient was intubated for airway protection -ED physician spoke with Dr. Joaquin who recommended loading with Keppra 1000 mg 3 times daily x 24 hours then 1000 mg twice daily thereafter as well as LP as patient was noted to have a fever and leukocytosis with first-time seizure like episode. CSF analysis benign, gram stain negative, culture pending -continue empiric ampicillin and ceftriaxone for possible meningitis; on isolation precautions -f/u blood cx -Head CT unremarkable -Noted leukocytosis now resolved -UDS negative, negative for salicylates and acetaminophen, negative for alcohol Status: Acute (3) ADHD (attention deficit hyperactivity disorder), predominantly hyperactive impulsive type: -f/u at [facility] Status: Chronic (4) Autism: -Lives in fci ([facility]) with / caregivers -anticipate that will need caregiver present with patient for weaning process and while off vent due to patient's underlying cognitive impairment and behavioral issues Status: Chronic Additional A&P Information -NPO while on vent -DVT ppx with Lovenox -GI ppx with PPI -Dispo: return to [facility]; has lived there x 10 yrs -Code status: FULL code -ICU admission due to vent support, need for isolation precautions Attestations Medical Necessity Statement*: Patient requires hospitalization for continued management of acute hypoxic respiratory failure, on vent support, empiric IV antibiotics secondary to first-time seizure and pending culture results as well as COVID-19 test results. Time Spent in Patient Care: 16 - 35 minutes (>than 50% of time spent in counselling and/or direct pt care on unit) . Critical Care Time: The high probability of a clinically significant, sudden or life threatening deterioration of the patient's [cardiovascular, respiratory] system(s) required my full and direct attention, intervention and personal management. The critical care time is as shown. This time is in addition to time spent performing any reported procedures but includes the following: [x] Data and vital sign review and interpretation [x] Patient assessment, examination and intervention [x] Documentation [x] Medication orders and management Critical Care Time (min): 15 Coding Level of Care Code Acute Fitness Services Manager for [facility] Fwmargarita Diagnoses Acute respiratory failure with hypoxia J96.01 Seizure R56.9 ADHD (attention deficit hyperactivity disorder), predominantly hyperactive impulsive type F90.1 Autism F84.0
--- NOTE | 2019-08-07 11:42 | PC.NURSE ---
MOTHER UPDATED ON PATIENTS STABILITY. SHE WANTED TO TALK TO DR GABRIEL WHEN AVAILABLE. DR GABRIEL GIVEN MESSAGE TO BMP RESULTS AND NEED FOR K AND MAG. MOTHER CONCERNED FOR NUTRITION WELL. PATIENT TURNED ON HIS LEFT AT 0800 , FLAT AT 10 AND RIGHT SIDE AT 1130. OGT FLUSHED. NOTED BRADICARDIA TO 48 DIPRAVAN DECREASED TO 40MCG.
[2019-08-07] MEDS: propofol 1,000 MG/100 ML INJ 16 MG IV (12:54)
--- NOTE | 2019-08-07 13:02 | PC.NURSE ---
intermintent bradicardia rate 45 to 53, decreased diipravan and fentanyl .
--- NOTE | 2019-08-07 14:29 | PC.NURSE ---
DR GABRIEL CONTACTED THIS RN TO ARRANGE FOR A FAMILAR SITTER TO BE WITH ROSALIA IN THE WEANING PROCESS. ROSAS ABAD IS SUGGESTED BY THE MOM JINNY. AWAITING THE BABY DOCTOR TO CONFIRM THE PERSON WHO AND WHEN THEY COULD ARRIVE.
[2019-08-07] MEDS: potassium chloride oral liq 20 mEq/15 mL UDC 40 MEQ OG-TUBE (14:32)
[2019-08-07 14:52] LABS: Coronavirus Lab Test PTC NOT DETECTED
--- NOTE | 2019-08-07 16:15 | PC.NURSE ---
[facility] be here in an hour or next shift in the morning. dr day contacted to see when she wanted to attempt the wean of he vent with his familiar health care liaison at the bed side. oz the wood preparation supervisor is reachable at [phone]
--- NOTE | 2019-08-07 17:22 | PC.NURSE ---
mery and his mother raciel both stated that due to his violent nature it would be best to pretreat wth depakote, and ativan before weaning dipravan. that his price and et tube and ogt should be out before he is unrestrained or he will bite and kick and hit.
[2019-08-07] MEDS: enoxaparin 40 mg/0.4 mL Syringe SUBCUT (17:29)
[2019-08-07] MEDS: propofol 1,000 MG/100 ML INJ 25 MG IV (17:44)
--- NOTE | 2019-08-07 17:44 | PC.NURSE ---
correction sitter Radha Wu at bedside. awaiting orders from Dr Das.
--- NOTE | 2019-08-07 20:03 | PC.NURSE ---
Shift report taken from THERESA Glover. Dr. Das discussed extubation with mother. Mother stated need for group chief operator to be present for this. head loft worker (Radha) is present at bedside. Dr. Das, Radha, Nalini RT, and nurse had bedside meeting to discuss plan of action to extubate. Pt will receive PO meds via OG tube, then sedation will be shut off. Radha will attempt to calm pt, but if attempts fail or if pt gets too violent, pt will be sedated again and attempts to extubate will be made tomorrow.
[2019-08-07] MEDS: divalproex ER 250 mg Tablet (24H) 750 MG PO (20:19)
[2019-08-07] MEDS: benztropine 1 mg Tablet 0.5 MG PO (20:21)
[2019-08-07] MEDS: OLANZapine 10 mg TABLET 15 MG PO (20:32)
[2019-08-07] MEDS: cefTRIAXone 2,000 MG in sodium chloride 0.9% (plus) 50 ML 100 MG IV (20:33)
--- NOTE | 2019-08-07 21:33 | PC.NURSE ---
Sedation was lowered to: fentanyl 75 mcg and propofol 35 mcg. Pt woke up nearly immediately and sat up in bed. Pt caregiver tried to calm pt down, but he was not calming down and began trying to pull catheter tubing and biting ET tube. RT stated she would feel better if this extubation was attempted tomorrow during the day shift with more hands available to help. Caregiver agreed. Sedation was resumed.
[2019-08-07] MEDS: propofol 1,000 MG/100 ML INJ 22.8 MG IV (22:17)
[2019-08-08] VITALS (23 sets, daily range): BP systolic 86–128; BP diastolic 45–72; PULSE 53–109; RESP 7–37; TEMP 36.4–36.6; O2SAT 87–100; BMI 23.2
[2019-08-08] MEDS: ampicillin 2,000 MG in sodium chloride 0.9% (plus) 50 ML 100 MG IV ×2 (01:51→06:34)
[2019-08-08] MEDS: propofol 1,000 MG/100 ML INJ 22.8 MG IV (02:45)
[2019-08-08] MEDS: LORazepam 2 mg/mL INJ 1 mL IVP ×3 (03:32→11:36)
[2019-08-08] MEDS: sodium chloride 0.45% 1,000 ML 75 ML IV ×2 (04:10→07:21)
--- NOTE | 2019-08-08 05:28 | PC.NURSE ---
Visitor Approval Pt was not intubated last night and employee from [facility] in [place] left around 2129. Employee was here to assist in calming and comforting patient with familiarity of employee. Approval accepted from VANESSA Huffman for same employee to come today and assist with patient after extubation.
[2019-08-08 05:39] LABS: Basophils % 0.1 %; Hematocrit 41.3 % (42.0-52.0); Hemoglobin 13.4 g/dL (11.7-16.6); Lymphocytes # 1.3 10^3/uL (0.8-4.8); Lymphocytes % 17.5 %; Mean Corpuscular HGB Conc 32.4 g/dL (30.0-36.0); Mean Corpuscular Hemoglobin 27.9 pg (28.0-34.0); Mean Platelet Volume 11.5 fL (7.4-10.4); Neutrophils # 5.1 10^3/uL (1.8-7.7); Neutrophils % 69.1 %; Nucleated Red Blood Cells % 0 %; Platelet Count 103 10^3/cmm (130-400); Red Cell Distribution Width 12.5 % (12.1-15.1); White Blood Count 7.4 10^3/uL (4.0-10.0)
[2019-08-08 06:08] LABS: Anion Gap 17.6 (5-19); Blood Urea Nitrogen 7 mg/dL (6-20); Calcium 8.4 mg/dL (8.5-10.5); Carbon Dioxide 22 mmol/L (22-29); Chloride 102 mmol/L (98-107); Glomerular Filtration Rate 204.3 mL/min (90-130); Glucose 72 mg/dL (65-115); Osmolality Calculated 280 mOsm/kg (285-295); Potassium 3.6 mmol/L (3.5-5.1); Sodium 138 mmol/L (136-145)
[2019-08-08] MEDS: divalproex ER 250 mg Tablet (24H) 750 MG PO (07:17)
[2019-08-08] MEDS: benztropine 1 mg Tablet 0.5 MG PO (07:17)
[2019-08-08] MEDS: propofol 1,000 MG/100 ML INJ 15 MG IV (07:18)
[2019-08-08] MEDS: OLANZapine 10 mg TABLET 15 MG PO ×2 (07:18→15:25)
[2019-08-08] MEDS: pantoprazole 40 mg SDV IVP (07:19)
[2019-08-08] MEDS: ondansetron 2 mg/ML SDV 2 mL 4 MG IVP (07:20)
[2019-08-08] MEDS: haloperidol inj 5 mg/mL INJ 1 mL IM (07:20)
--- NOTE | 2019-08-08 08:59 | PC.NURSE ---
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 HIS NORMAL HOME MEDS WERE GIVEN IN ADDITION TO ZYPREXA AND HALDOL AND ATIVAN. ATTEMPTS TO WEAN DIPRAVAN EARLY FAILED PATIENT SAT STRAIGHT UP IN BED AND DISLODGED HIS CONNECTOR TO ET TUBE. HE WAS SOOTHED BACK DOWN AND DIPRAVAN LEFT AT 50 UNTIL HALDOL AND PO MEDS COULD ABSORB AND ROSAS AT BEDSIDE. CURRENTLY HE IS ON 25 OF DIPRAVAN AND 25 OF FENTANYL.
--- NOTE | 2019-08-08 10:37 | PC.NURSE ---
price removed catheter intact.
--- NOTE | 2019-08-08 11:51 | P.DS_ITS ---
Discharge Providers Date of Admission: 08/06/19 15:24 Date of Discharge: August 08, 2019 Attending Provider at Admission: Asiya Das MD Attending Provider at Discharge: Asiya Das MD Primary Care Provider: DONNA Nelson Diagnoses at Discharge Discharge Diagnosis (1) Acute respiratory failure with hypoxia: Status: Acute Problem details: -Noted to be quite hypoxic in the field, confirmed on ABG with noted hypercapnia and respiratory acidosis (7.18/64/95.8) -sedated with propofol and fentanyl; discontinued this AM -CXR unremarkable in terms of infection, ETT and OGT positions confirmed -extubated today; COVID-19 negative, off isolation precautions -Daily CXR, ABG while on vent support -Unclear if hypoxia triggered seizure-like activity or if it is a result of the seizure-like activity -Patient has no known history of any underlying respiratory illness, not oxygen dependent at baseline -sputum culture-mixed reynaldo, gram stain is polymicrobial (2) Seizure: Status: Acute Problem details: -Witnessed seizure, first-time event per mother at bedside -Unclear trigger -Given dose of Ativan by EMS on their arrival and was quite somnolent and not really following commands on arrival here -With resulting hypoxia, and noted respiratory acidosis patient was intubated for airway protection -ED physician spoke with Dr. Joaquin who recommended loading with Keppra 1000 mg 3 times daily x 24 hours then 1000 mg twice daily thereafter as well as LP as patient was noted to have a fever and leukocytosis with first-time seizure like episode. CSF analysis benign, gram stain negative, culture prelim negative -continue empiric ampicillin and ceftriaxone for possible meningitis; on isolation precautions -blood cx: orelim negative -Head CT unremarkable -Noted leukocytosis now resolved -UDS negative, negative for salicylates and acetaminophen, negative for alcohol (3) ADHD (attention deficit hyperactivity disorder), predominantly hyperactive impulsive type: Status: Chronic Problem details: -f/u at [facility] (4) Autism: Status: Chronic Problem details: -Lives in fci ([facility]) with /7 caregivers -anticipate that will need caregiver present with patient for weaning process and while off vent due to patient's underlying cognitive impairment and behavioral issues Reason for Visit Reason for Visit: GRAND MAL SEIZURE Hospital Course Hospital Course: Patient was admitted to ICU secondary to being on ventilator support due to acute hypoxic respiratory failure after having had a witnessed seizure-like episode. Patient had a lumbar puncture done and was loaded with Keppra per neurology recommendations. CSF Gram stain and cultures so far have been negative, blood cultures have been negative, sputum cultures have been negative as well. He was covered empirically with ceftriaxone and ampicillin for prophylactic treatment of meningitis though clinical suspicion was low. Due to patient's symptoms as well as fever he was tested for COVID-19 which is negative. He had been on isolation precautions pending test results which were subsequently discontinued once results were available. Due to patient's underlying autism and associated behavioral disturbance I requested caregiver to be present at bedside for extubation process. Patient is reportedly extremely combative and aggressive so patient was discharged shortly after extubation. Due to his behavior were unable to wean him for prolonged period of time and he did require some oxygen support for a brief period of time. I have discussed symptoms that may be concerning for patient worsening such as shortness of breath, another seizure-like episode for which he would need to seek medical attention immediately. I have requested neurology appointment for further evaluation as this is a first-time seizure with no clear etiology at this time. Infectious work-up has been negative, he has been afebrile, hemodynamically stable throughout his hospital stay. He is to follow-up with his primary care provider within 1 week. Keppra will be continued at least until he follows up with neurology. Discharge Summary: -Patient to follow-up with primary care provider within 1 week -Patient to follow-up with Dr. Joaquin as soon as next available appointment Physical Exam Const: COMMON NORMALS: no acute distress ORIENTATION/CONSCIOUSNESS: Yes awake OTHER: -non-verbal at baseline HENMT: COMMON NORMALS: normocephalic, atraumatic and moist oral mucous membranes HEAD & SCALP: normocephalic and atraumatic TEETH & GINGIVA: Yes poor dentition Eye: COMMON NORMALS: Equal, round and reactive pupils present, EOMs intact bilaterally and conjunctivae normal CONJUNCTIVA: Yes conjunctivae normal PUPIL: Yes Equal, round and reactive pupils present Neck/C-Spine: COMMON NORMALS: full ROM GENERAL: Yes normal visual inspection and Yes trachea midline Chest: CHEST: Yes Symmetrical chest wall rise Resp: COMMON NORMALS: normal respiratory effort, No retractions, No use of accessory muscles and clear to auscultation bilaterally EFFORT & INSPECTION: Yes symmetric chest movement and No tachypneic AUSCULTATION: clear to auscultation bilaterally Cardio: COMMON NORMALS: regular rate, regular rhythm, S1 normal heart sound present, S2 normal heart sound present and No murmurs present (Cardio) RATE: regular rate RHYTHM: regular rhythm HEART SOUNDS: S1 normal heart sound present and S2 normal heart sound present GI: COMMON NORMALS: Normal to inspection, nondistended, normoactive bowel sounds present, Soft to palpation and non-tender PALPATION: Yes Soft to palpation Extremity: COMMON NORMALS: normal to inspection, full ROM, no clubbing, cyanosis or edema and no pedal edema Neuro: COMMON NORMALS: moves all extremities Psych: OTHER: -non-verbal at baseline Skin: COMMON NORMALS: no rashes or lesions noted, no jaundice, no petechiae and no mottling GENERAL SKIN EXAM: no rashes or lesions noted Urinary Catheter Management^: Marina: Cath Placed During This Visit: yes Urethral Indwelling: Yes Reason for Continuing Indwelling Catheter: Accurate Measurement of Urinary Output in Critically Ill Patients Urinary Catheter Date of Insertion: 08/06/19 Discharge Data Data Completed and Pending: Completed Studies During Hospitalization Category Date Time Status CT head wo con* [id number] Urgent Cat Scan 08/06/19 12:26 Completed CXRP [XR chest 1V portable [id number]] S tat Exams 08/06/19 13:26 Completed FL guided lumbarp unc dx* [id number] Stat Exams 08/06/19 16:19 Completed XR chest 1V pina ble [id number] Routine Exams 08/07/19 06:00 Completed XR chest 1V pina ble [id number] Urgent Exams 08/06/19 12:26 Completed Pending at discharge Category Date Time Status Albumin CSF Routi ne Lab 08/06/19 17:40 Received Blood Culture Sta t Lab 08/06/19 13:13 Results CSF Culture & Gra m Stain Stat Lab 08/06/19 17:40 Results Lactate CSF Routi ne Lab 08/06/19 17:40 Received Sputum Culture an d Gram Stain Stat Lab 08/06/19 13:49 Results Labs from last 24 hours 08/08/19 08/08/19 08/06/19 03:30 03:30 14:20 WBC 7.4 RBC 4.80 Hgb 13.4 Hct 41.3 L MCV 86.0 MCH 27.9 L MCHC 32.4 RDW 12.5 Plt Count 103 L MPV 11.5 H Neut % (Auto) 69.1 Lymph % (Auto) 17.5 Cotton % (Auto) 13.0 Eos % (Auto) 0.0 Baso % (Auto) 0.1 Neut # (Auto) 5.1 Lymph # (Auto) 1.3 Cotton # (Auto) 1.0 H Eos # (Auto) 0.0 Baso # (Auto) 0.0 Nucleated RBC % (a uto) 0 Nucleated RBCs # 0.0 Sodium 138 Potassium 3.6 Chloride 102 Carbon Dioxide 22 Anion Gap 17.6 BUN 7 Creatinine 0.5 L GFR Calculation 204.3 H Glucose 72 Calculated Osmolal ity 280 L Calcium 8.4 L Nasal/Oral COVID-1 9 PCR Not detected Vitals: Last Vital Signs Temp 97.5 F L 08/08/19 07:00 Pulse 87 08/08/19 08:51 Resp 24 H 08/08/19 11:27 BP 110/72 08/08/19 08:00 Pulse Ox 100 08/08/19 08:00 Discharge Plan Discharge Patient Disposition: Home, Self-Care Condition: Stable Prescriptions: New Keppra 750 mg tablet 750 mg PO BID 30 Days Qty: 60 RF: 0 Continued loratadine 10 mg tablet 10 mg PO DAILY RF: 0 L.acidophil,parac-S.therm-Bif. 8 billion cell capsule 1 cap PO DAILY RF: 0 sodium chloride 0.65 % aerosol,spray 1 - 2 spray INTRANASAL Q2H PRN (Reason: nasal congestion) RF: 0 ibuprofen 200 mg tablet 400 mg PO Q6H PRN (Reason: fever or pain) RF: 0 acetaminophen [Tylenol] 325 mg tablet 650 mg PO Q6H PRN (Reason: fever or pain) RF: 0 benztropine 0.5 mg tablet 0.5 mg PO BID Qty: 60 RF: 5 guanfacine [Intuniv ER] 4 mg tablet extended release 24 hr 4 mg PO QAM Qty: 30 RF: 5 Delsym 12 hour 30 mg/5 mL suspension,extended rel 12 hr 10 ml PO Q12H PRN (Reason: unknown) RF: 0 olanzapine 10 mg Tablet See Rx Instructions .ROUTE .COMPLEX RF: 0 Benzaclin 1-5 % Gel 1 applic TOPICAL BID RF: 0 Sore Throat Aerosol,[place] See Rx Instructions .ROUTE .COMPLEX RF: 0 Solarcaine 20-0.13 % Aerosol,[place] See Rx Instructions .ROUTE .COMPLEX RF: 0 Polysporin (bacitracin zinc) 500-10,000 unit/gram Ointment See Rx Instructions .ROUTE .COMPLEX RF: 0 Denta 5000 Plus 1.1 % Cream See Rx Instructions .ROUTE .COMPLEX RF: 0 Tylenol Cold Multi-Symptom Day 5-10-325 mg Tablet 2 tab PO Q4H PRN (Reason: Allergy Symptoms) RF: 0 vitamin E 200 unit capsule 800 unit PO DAILY RF: 0 divalproex 250 mg tablet,delayed release (DR/EC) See Rx Instructions .ROUTE .COMPLEX RF: 0 Milk of Magnesia 400 mg/5 mL suspension See Rx Instructions .ROUTE .COMPLEX PRN (Reason: constipation) RF: 0 olanzapine 15 mg tablet 15 mg PO TID RF: 0 Discharge Orders: Discharge Order (Routine); Ordered 08/08/19 Ordered By: Asiya Das Referrals: Alexandrea Joaquin MD [Physician] - 1 month (First time seizure with resulting acute hypoxic respiratory failure, on Keppra) Harry Valentin, [employer] [Primary Care Provider] - 4-7 days (Post hospital discharge follow up) Discharge Diet: Usual diet Discharge Activity: Resume usual activity Discharge Date/Time: 08/08/19 16:04 Discharge Attestations Time Spent in Discharge Care*: greater than 30 min Specific Discharge Activities: Specific discharge activities: educating and/or supporting family/caregiver, documenting/other paperwork and evaluating patient/reviewing data Status at Discharge: Cognitive status at discharge: other (autistic) , Behavioral status at discharge: can be uncooperative and dependent in ADL's , Overall status at discharge: patient is progressing back to baseline Quality Metrics Clinical Quality Measures During this hospital stay, did patient experience: None Coding Level of Care Code Acute Documentation Coordinator for Chg Fwd Exam Comprehensive Diagnoses Acute respiratory failure with hypoxia J96.01 Seizure R56.9 ADHD (attention deficit hyperactivity disorder), predominantly hyperactive impulsive type F90.1 Autism F84.0
--- NOTE | 2019-08-08 13:05 | PC.NURSE ---
patients sedation off at 1115, ativan given to keep him calm. extubated at 1320 per rt and md without me at bedside. support given at 1245 , oxygen placed, patient calmed. iv fluids removed. lieft iv removed and coban dressing placed. right iv fa site remains, price was removed much earlier about 1100. discharge papers completed in anticipation of discharge being quick once patient awakens completely, plan on exiting side door per wc .
--- NOTE | 2019-08-08 13:09 | PC.NURSE ---
98 cc if fentanyl wasted. charge nurse bj witnessed.
--- NOTE | 2019-08-08 14:50 | PC.NURSE ---
PATIENT AWAKENS PERIODICALLY TO CLEAR HIS AIRWAY. YANKAUER USED AT TIMES TO ASSIST. ABLE TO TAKE A SIP OF WATER AND CLEAR HIS THROAT. WEANED OXYGEN FROM 9LHF TO 2 L HF AT THIS TIME. UNDERWEAR AND PANTS ON. REMAINSRESTRAINED CALMS RATHER EASILY. ROSAS AT BEDSIDE . SATS 93.
--- NOTE | 2019-08-08 15:09 | PC.NURSE ---
OXYGEN OFF. SATS 93.
--- NOTE | 2019-08-08 15:18 | PC.NURSE ---
R FA IV REMOVED . T SHIRT PUT ON FROM LEFT SIDE , RESTRAINT REPLACED. SATS 93 RA
--- NOTE | 2019-08-08 15:42 | PC.NURSE ---
PATIENT IS DRESSED, SATS 94 ON ROOM AIR, WAS ABLE TO BE FED A PUDDING AND ICY. TAKING HIS ZYPREXA HE DID SO . PLAN ON PLACING HIS SHOES ON HIM AND LOOSENING RESTRAINTS ON HIS NEXT BURST OF ENERGY.
[2019-08-13 08:49] LABS: Lactate CSF 22.3 mmol/L
== END 2019-08-08 16:04 | disposition home or self-care (01) | DRG 208 ==
LOC: ER 12:40 → ICU 17:39
PROVIDERS: Family Medicine; Admitting Provider Family Medicine; PCP Nurse Practitioner; Visit Provider Family Medicine
DX: J96.01 Acute respiratory failure with hypoxia (principal); F84.0 Autistic disorder; E87.2 Acidosis; J96.02 Acute respiratory failure with hypercapnia; Z20.828 Contact with and (suspected) exposure to other viral communicable diseases; F90.9 Attention-deficit hyperactivity disorder, unspecified type; G40.409 Other generalized epilepsy and epileptic syndromes, not intractable, without status epilepticus
CPT/HCPCS: 12345; 31500; 36415; 36600; 62328; 70450; 71045; 80048; 80053; 80306; 80307; 80500; 81001; 82042; 82803; 82945; 83605; 83735; 84145; 85025; 85610; 86140; 87040; 87070; 87075; 87205; 87635; 89050; 93005; 94002; 94003; 94799; 96365; 96366; 96367; 96368; 96372; 96375; 99284; 99291; C9113; J0290; J0330; J0696; J1630; J1650; J1953; J2060; J2405; J2704; J3010; J3475; J3490

== ENCOUNTER → 2019-09-18 07:53 | Outpatient (BNVA) | payer MEDICAID, SELFPAY | PROVIDERS: PCP Nurse Practitioner; Referring Provider Family Medicine; Visit Provider Specialist | DX: G40.309 Generalized idiopathic epilepsy and epileptic syndromes, not intractable, without status epilepticus (principal); F84.0 Autistic disorder; F98.8 Other specified behavioral and emotional disorders with onset usually occurring in childhood and adolescence | CPT/HCPCS: 99204 ==

== ENCOUNTER → 2019-10-02 09:21 | Outpatient (BNVA) | payer MEDICAID, SELFPAY | PROVIDERS: PCP Nurse Practitioner; Visit Provider Specialist | DX: G40.309 Generalized idiopathic epilepsy and epileptic syndromes, not intractable, without status epilepticus (principal); F98.8 Other specified behavioral and emotional disorders with onset usually occurring in childhood and adolescence; F84.0 Autistic disorder; R45.1 Restlessness and agitation | CPT/HCPCS: 80164 ==

== ENCOUNTER → 2020-04-11 08:34 | Outpatient (BNVA) | payer MEDICAID, SELFPAY | PROVIDERS: PCP Nurse Practitioner; Visit Provider Nurse Practitioner | DX: F84.0 Autistic disorder (principal); Z11.3 Encounter for screening for infections with a predominantly sexual mode of transmission | CPT/HCPCS: 80053; 81003; 85025; 86592 ==

== ENCOUNTER → 2020-06-23 15:11 | Outpatient (BNVA) | payer MEDICAID, SELFPAY | PROVIDERS: PCP Nurse Practitioner; Visit Provider Nurse Practitioner | DX: R32 Unspecified urinary incontinence (principal) | CPT/HCPCS: 81000 ==

== ENCOUNTER 2020-10-07 15:26 | Emergency (ER) | payer MEDICAID, SELFPAY ==
[2020-10-07 15:31] VITALS: BP 124/76; PULSE 108; RESP 18; TEMP 37.1; O2SAT 97; BMI 22.3
[2020-10-07 15:53] VITALS: BP 121/73; PULSE 102; RESP 16; O2SAT 94
--- NOTE | 2020-10-07 16:35 | CTR_ITS ---
PROCEDURE INFORMATION: Exam: CT Head Without Contrast Exam date and time: 10/07/2020 4:35 PM Age: 25 years old Clinical indication: Patient HX: Witnessed seizure. History of seizure disorder. Severe autism. Patient screaming/not laying still. Best exam obtained. TECHNIQUE: Imaging protocol: Computed tomography of the head without contrast. Radiation optimization: All CT scans at this facility use at least one of these dose optimization techniques: automated exposure control; mA and/or kV adjustment per patient size (includes targeted exams where dose is matched to clinical indication); or iterative reconstruction. COMPARISON: CT head wo con* [id number] 08/06/2019 2:47 PM RADIATION DOSE METRICS: Total DLP (mGy-cm): 1519.48 FINDINGS: Brain: Normal. No hemorrhage. Unremarkable white matter. No mass effect. Cerebral ventricles: No ventriculomegaly. Paranasal sinuses: Visualized sinuses demonstrates scattered mild severity mucosal thickening. No fluid levels. Mastoid air cells: Visualized mastoid air cells are well aerated. Bones/joints: Unremarkable. No acute fracture. Soft tissues: Unremarkable. CT/CT head wo con* [id number] IMPRESSION: 1. No acute intracranial abnormality. 2. No change from comparison. Radiation Dose CTDIVOL = (mGy): DLP = 1519.48 (mGy-cm)
--- NOTE | 2020-10-07 16:35 | XRR_ITS ---
PROCEDURE INFORMATION: Exam: XR Chest Exam date and time: 10/07/2020 4:35 PM Age: 25 years old Clinical indication: Other: Seizure; Patient HX: Covid+ TECHNIQUE: Imaging protocol: XR of the chest. Views: 1 view. COMPARISON: CR XR chest 1V portable [id number] 08/06/2019 2:41 PM FINDINGS: Lungs: Unremarkable. No consolidation. Pleural spaces: Unremarkable. No pleural effusion. No pneumothorax. Heart/Mediastinum: Unremarkable. No cardiomegaly. Bones/joints: Unremarkable. XR/XR chest 1V portable [id number] IMPRESSION: No acute findings.
[2020-10-07] MEDS: ondansetron 2 mg/ML SDV 2 mL 4 MG IVP (16:40)
[2020-10-07] MEDS: LORazepam 2 mg/mL INJ 1 mL 1 MG IVP (16:40)
[2020-10-07 16:58] LABS: Basophils % 0.4 %; Hematocrit 48.2 % (42.0-52.0); Hemoglobin 16.1 g/dL (11.7-16.6); Lymphocytes % 14.2 %; Mean Corpuscular HGB Conc 33.4 g/dL (30.0-36.0); Mean Corpuscular Hemoglobin 27.8 pg (28.0-34.0); Mean Corpuscular Volume 83.2 fl (80-94); Mean Platelet Volume 10.3 fL (7.4-10.4); Monocytes % 13.2 %; Neutrophils # 4.94 10^3/uL (1.8-7.7); Neutrophils % 67.4 %; Nucleated Red Blood Cells % 0 %; Platelet Count 215 10^3/cmm (130-400); Red Blood Count 5.79 10^6/uL (4.1-5.3); Red Cell Distribution Width 12.7 % (12.1-15.1); White Blood Count 7.3 10^3/uL (4.0-10.0)
--- NOTE | 2020-10-07 16:58 | ED_ITS ---
HPI - Seizure General: Chief Complaint: Seizure Stated Complaint: SEIZURE Time Seen by Provider: 10/07/20 15:51 Source: EMS, RN notes reviewed and other (caregiver) Mode of arrival: EMS Limitations: other (autistic) History of Present Illness: HPI Narrative: Patient is a 25-year-old male with a history of autism who lives in a usp and was noted to have a seizure earlier today. Seizure lasted anywhere from 1 to 3 minutes. He does have a history of seizure, however his last seizure was about 14 months ago. About a week ago he had a fever for several days but has not had a fever in about 3 to 4 days. He has otherwise been well. No change in his medications. His caregiver however states that he did not sleep at all last night. MD complaint: seizure Description of Episode: tonic-clonic movement Duration of episode: 3 -: minutes(s) Witnessed: Yes - by Bystander Trauma: No Seizure History: Yes Place: Home Possible Precipitating Event: lack of sleep Associated symptoms: Deny chest pain, chills, confusion, cough, diaphoresis, anorexia, malaise, rash, short of breath, syncope or weakness Treatments prior to arrival: benzodiazepines Review of Systems General: Reports: 10 or more systems reviewed and unremarkable except in HPI and below Const: Denies: chills, malaise or diaphoresis Card: Denies: chest pain or syncope Neuro: Denies: confusion PFSH ED PFSH: Medical History ADHD (attention deficit hyperactivity disorder), predominantly hyperactive impulsive type -f/u at [facility] Autism -Lives in [facility]p ([facility]) with 03/09 caregivers -anticipate that will need caregiver present with patient for weaning process and while off vent due to patient's underlying cognitive impairment and behavioral issues Environmental and seasonal allergies Seizure -Witnessed seizure, first-time event per mother at bedside -Unclear trigger -Given dose of Ativan by EMS on their arrival and was quite somnolent and not really following commands on arrival here -With resulting hypoxia, and noted respiratory acidosis patient was intubated for airway protection -ED physician spoke with Dr. Joaquin who recommended loading with Keppra 1000 mg 3 times daily x 24 hours then 1000 mg twice daily thereafter as well as LP as patient was noted to have a fever and leukocytosis with first-time seizure like episode. CSF analysis benign, gram stain negative, culture prelim negative -continue empiric ampicillin and ceftriaxone for possible meningitis; on isolation precautions -blood cx: orelim negative -Head CT unremarkable -Noted leukocytosis now resolved -UDS negative, negative for salicylates and acetaminophen, negative for alcohol Surgical History No history of previous surgery Family History Other Diabetes Hypertension Social History Smoking and tobacco status: never smoked Second hand smoke exposure: No Marital status: Single Number of children: 0 History of recent travel: No Physical Exam Const: COMMON NORMALS: no acute distress, average body habitus, no limitations, healthy appearing, alert and well nourished HENMT: COMMON NORMALS: normocephalic and moist oral mucous membranes HEAD & SCALP: normocephalic and abrasion (right temporal) Neck/C-Spine: COMMON NORMALS: no meningeal signs and no JVD Resp: COMMON NORMALS: normal respiratory effort, No retractions, No use of accessory muscles, clear to auscultation bilaterally and percussion normal AUSCULTATION: clear to auscultation bilaterally PERCUSSION: percussion normal Cardio: COMMON NORMALS: no JVD, regular rate, regular rhythm, S1 normal heart sound present, S2 normal heart sound present, No gallops present (Cardio), No clicks present (Cardio), No murmurs present (Cardio), No rub (Cardio) and Peripheral pulses 2+ throughout RATE: regular rate RHYTHM: regular rhythm HEART SOUNDS: S1 normal heart sound present and S2 normal heart sound present PERIPHERAL PULSES: Peripheral pulses 2+ throughout GI: COMMON NORMALS: Normal to inspection, nondistended, normoactive bowel sounds present, Soft to palpation, non-tender, No hepatosplenomegaly present, no masses and no bruits PALPATION: Yes Soft to palpation and Yes No hepatosplenomegaly present Extremity: COMMON NORMALS: normal to inspection, full ROM, capillary refill normal, no calf tenderness and no pedal edema Neuro: SENSORIUM/ORIENTATION: Yes alert MENINGEAL SIGNS: Yes no meningeal signs Skin: COMMON NORMALS: no rashes or lesions noted, no wounds, turgor normal, no jaundice, no petechiae and no mottling GENERAL SKIN EXAM: no rashes or lesions noted and turgor normal Course Reevaluation(s): Reevaluation #1: Discussed lab and imaging findings with caregiver. Unremarkable other than elevated lactic acid. No signs of infection, I think the lactic acid elevation is secondary to dehydration. She states that he drinks soda and tea mainly and not much water. He was hydrated with 2 L of saline and discharged home. Since he has insomnia I gave him a dose of trazodone here and sent him home with a prescription for trazodone. She voiced understanding and is in agreement with the plan Time: 21:03 Vital Signs: Vital signs: Vital Signs Temperature 98.8 F 10/07/20 15:31 Pulse Rate 117 H 10/07/20 19:17 Respiratory Rate 18 10/07/20 19:17 Blood Pressure 138/91 10/07/20 19:17 Pulse Oximetry 96 10/07/20 19:17 MDM - Seizure MDM Narrative: Medical decision making narrative: 25-year-old male with a history of seizures who presents to the emergency department after a single episode of seizure today. Evaluation in the emergency department only shows lactic acidosis and is otherwise unremarkable. He was hydrated with saline and discharged home. Medical Records: Attestation: I reviewed the patient's medical records. Lab Data: Attestation: I reviewed the patient's lab results. Labs: Lab Results 10/07/20 10/07/20 10/07/20 Range/Units 16:05 16:05 16:05 WBC 7.3 (4.0-10.0) 10^3/ uL RBC 5.79 H (4.1-5.3) 10^6/u L Hgb 16.1 (11.7-16.6) g/dL Hct 48.2 (42.0-52.0) % MCV 83.2 (80-94) fl MCH 27.8 L (28.0-34.0) pg MCHC 33.4 (30.0-36.0) g/dL RDW 12.7 (12.1-15.1) % Plt Count 215 (130-400) 10^3/c mm MPV 10.3 (7.4-10.4) fL Neut % (Auto) 67.4 % Lymph % (Auto) 14.2 % [place] % (Auto) 13.2 % Eos % (Auto) 0.0 % Baso % (Auto) 0.4 % Neut # (Auto) 4.94 (1.8-7.7) 10^3/u L Lymph # (Auto) 1.0 (0.8-4.8) 10^3/u L [place] # (Auto) 1.0 H (0.2-0.9) 10^3/u L Eos # (Auto) 0.0 (0.0-0.8) 10^3/u L Baso # (Auto) 0.0 (0.0-0.1) 10^3/u L Nucleated RBC % (a uto) 0 % Nucleated RBCs # 0.0 /100WBC Sodium 140 (136-145) mmol/L Potassium 3.9 (3.5-5.1) mmol/L Chloride 105 (98-107) mmol/L Carbon Dioxide 22 (22-29) mmol/L Anion Gap 16.9 (5-19) BUN 9 (6-20) mg/dL Creatinine 0.6 L (0.7-1.2) mg/dL GFR Calculation 164.2 H (90-130) mL/min Glucose 176 H (65-115) mg/dL Calculated Osmolal ity 293 (285-295) mOsm/k g Lactate 4.0 H (0.5-2.2) mmol/L Calcium 8.8 (8.5-10.5) mg/dL Total Bilirubin 0.3 (0.15-1.2) mg/dL AST 42 H (0-40) U/L ALT 38 (0-41) U/L Alkaline Phosphata se 60 (40-130) IU/L Creatine Kinase (39-308) U/L C-Reactive Protein 2.3 (0.0-4.9) mg/L Total Protein 6.8 (6.6-8.7) g/dL Albumin 4.0 (3.5-5.2) g/dL Globulin 2.8 (1.3-4.6) g/dL Lipase 27 (13-60) U/L Urine Color (Yellow) Urine Appearance (CLEAR) Urine pH (5-7) Ur Specific Gravit y (1.005-1.030) Urine Protein (Negative) Urine Glucose (UA) (Normal) Urine Ketones (Negative) Urine Blood (Negative) Urine Nitrate (Negative) Urine Bilirubin (Negative) Urine Urobilinogen (Negative) mg/dL Ur Leukocyte Magdalena ase (Negative) 10/07/20 10/07/20 Range/Units 16:05 19:35 WBC (4.0-10.0) 10^3/ uL RBC (4.1-5.3) 10^6/u L Hgb (11.7-16.6) g/dL Hct (42.0-52.0) % MCV (80-94) fl MCH (28.0-34.0) pg MCHC (30.0-36.0) g/dL RDW (12.1-15.1) % Plt Count (130-400) 10^3/c mm MPV (7.4-10.4) fL Neut % (Auto) % Lymph % (Auto) % [place] % (Auto) % Eos % (Auto) % Baso % (Auto) % Neut # (Auto) (1.8-7.7) 10^3/u L Lymph # (Auto) (0.8-4.8) 10^3/u L [place] # (Auto) (0.2-0.9) 10^3/u L Eos # (Auto) (0.0-0.8) 10^3/u L Baso # (Auto) (0.0-0.1) 10^3/u L Nucleated RBC % (a uto) % Nucleated RBCs # /100WBC Sodium (136-145) mmol/L Potassium (3.5-5.1) mmol/L Chloride (98-107) mmol/L Carbon Dioxide (22-29) mmol/L Anion Gap (5-19) BUN (6-20) mg/dL Creatinine (0.7-1.2) mg/dL GFR Calculation (90-130) mL/min Glucose (65-115) mg/dL Calculated Osmolal ity (285-295) mOsm/k g Lactate (0.5-2.2) mmol/L Calcium (8.5-10.5) mg/dL Total Bilirubin (0.15-1.2) mg/dL AST (0-40) U/L ALT (0-41) U/L Alkaline Phosphata se (40-130) IU/L Creatine Kinase 125 (39-308) U/L C-Reactive Protein (0.0-4.9) mg/L Total Protein (6.6-8.7) g/dL Albumin (3.5-5.2) g/dL Globulin (1.3-4.6) g/dL Lipase (13-60) U/L Urine Color Yellow (Yellow) Urine Appearance Clear (CLEAR) Urine pH 5 (5-7) Ur Specific Gravit y 1.020 (1.005-1.030) Urine Protein Trace (Negative) Urine Glucose (UA) Norm (Normal) Urine Ketones 1+ H (Negative) Urine Blood Neg (Negative) Urine Nitrate Negative (Negative) Urine Bilirubin Neg (Negative) Urine Urobilinogen Norm (Negative) mg/dL Ur Leukocyte Magdalena ase Negative (Negative) Imaging Data^: CXR: Attestation: I personally reviewed and interpreted this imaging study as follows: Radiologist's impression: [employer] [id number] ReportSigned Patient: Bj Herron #: [id number]: 1995Acct#:[id number]/Sex: 25 / MADM Date: 10/07/20Loc: [facility]/Bed:Attending Dr: Ordering Provider/Ordering MD: Yessica Ramírez MD, [facility] Date of Service: 10/07/20 Procedure(s): XR chest 1V portable [id number] Accession Number(s): [id number] Report Number: [id number] PROCEDURE INFORMATION: Exam: XR Chest Exam date and time: 10/07/2020 4:35 PM Age: 25 years old Clinical indication: Other: Seizure; Patient HX: Covid+ TECHNIQUE: Imaging protocol: XR of the chest. Views: 1 view. COMPARISON: CR XR chest 1V portable [id number] 08/06/2019 2:41 PM FINDINGS: Lungs: Unremarkable. No consolidation. Pleural spaces: Unremarkable. No pleural effusion. No pneumothorax. Heart/Mediastinum: Unremarkable. No cardiomegaly. Bones/joints: Unremarkable. XR/XR chest 1V portable [id number] IMPRESSION: No acute findings. Dictated By:Tereza Gaffney By:Tereza Gaffney Date/Time:10/07/201818DD/ 16 CT Head: Attestation: I personally reviewed and interpreted this imaging study as follows: Radiologist's impression: [address] [address]VU Scan ReportSigned Patient: Bj Herron #: [id number]: 1995Acct#:[id number]/Sex: MADM Date: 10/07/20Loc: [facility]/Bed:Attending Dr: Ordering Provider/Ordering MD: Yessica Ramírez MD, [facility] Date of Service: 10/07/20 Procedure(s): CT head wo con* [id number] Accession Number(s): [id number] Report Number: [id number] PROCEDURE INFORMATION: Exam: CT Head Without Contrast Exam date and time: 10/07/2020 4:35 PM Age: 25 years old Clinical indication: Patient HX: Witnessed seizure. History of seizure disorder. Severe autism. Patient screaming/not laying still. Best exam obtained. TECHNIQUE: Imaging protocol: Computed tomography of the head without contrast. Radiation optimization: All CT scans at this facility use at least one of these dose optimization techniques: automated exposure control; mA and/or kV adjustment per patient size (includes targeted exams where dose is matched to clinical indication); or iterative reconstruction. COMPARISON: CT head wo con* [id number] 08/06/2019 2:47 PM RADIATION DOSE METRICS: Total DLP (mGy-cm): 1519.48 FINDINGS: Brain: Normal. No hemorrhage. Unremarkable white matter. No mass effect. Cerebral ventricles: No ventriculomegaly. Paranasal sinuses: Visualized sinuses demonstrates scattered mild severity mucosal thickening. No fluid levels. Mastoid air cells: Visualized mastoid air cells are well aerated. Bones/joints: Unremarkable. No acute fracture. Soft tissues: Unremarkable. CT/CT head wo con* [id number] IMPRESSION: 1. No acute intracranial abnormality. 2. No change from comparison. Radiation Dose CTDIVOL = (mGy): DLP = 1519.48 (mGy-cm) Dictated By:Tereza Gaffney By:Tereza Gaffney Date/Time:10/07/202028DD/ 26 Discharge Plan Discharge Patient Disposition: Home Clinical Impression: Seizure, Dehydration Insomnia Qualifiers: Insomnia type: unspecified Qualified Code(s): G47.00 - Insomnia, unspecified Condition: Stable Prescriptions: New trazodone 50 mg tablet 50 mg PO .at bedtime PRN (Reason: insomnia) Qty: 30 RF: 0 Continued olanzapine 15 mg tablet 15 mg PO TID Qty: 90 RF: 5 L.acidophil,parac-S.therm-Bif. 8 billion cell capsule 1 cap PO DAILY@0800 RF: 0 sodium chloride 0.65 % aerosol,spray 1 - 2 spray INTRANASAL Q2H PRN (Reason: nasal congestion) RF: 0 acetaminophen [Tylenol] 325 mg tablet 650 mg PO Q6H PRN (Reason: fever or pain) RF: 0 Delsym 12 hour 30 mg/5 mL suspension,extended rel 12 hr 10 ml PO Q12H PRN (Reason: cough) Qty: 148 RF: 0 Polysporin (bacitracin zinc) 500-10,000 unit/gram ointment See Rx Instructions .ROUTE .COMPLEX Qty: 28.3 RF: 0 Chloraseptic Throat [place] 1.4 % aerosol,spray 1 spray MUCOUS MEM .Q6HRS PRN (Reason: sore throat) Qty: 20 RF: 5 ibuprofen 200 mg tablet 400 mg PO Q6H PRN (Reason: fever or pain) Qty: 30 RF: 5 olanzapine 10 mg tablet 15 mg PO DAILY PRN (Reason: prior to dr appointments) Qty: 30 RF: 1 Solarcaine 20-0.13 % Aerosol,[place] See Rx Instructions .ROUTE .COMPLEX RF: 0 Tylenol Cold Multi-Symptom Day 5-10-325 mg Tablet 2 tab PO Q4H PRN (Reason: Allergy Symptoms) RF: 0 magnesium hydroxide [Milk of Magnesia] 400 mg/5 mL suspension See Rx Instructions .ROUTE .COMPLEX PRN (Reason: constipation) RF: 0 benztropine 0.5 mg tablet 0.5 mg PO BID@08,20 RF: 0 Benzaclin 1-5 % gel 1 applic TOPICAL BID@08,20 RF: 0 Depakote ER 500 mg tablet extended release 24 hr 1,000 mg PO BID@0800,2000 RF: 0 vitamin E 400 unit capsule 800 unit PO DAILY@0800 RF: 0 loratadine 10 mg tablet 10 mg PO DAILY@0800 RF: 0 Denta 5000 Plus 1.1 % cream 1 applic dental BEDTIME RF: 0 Intuniv ER 4 mg tablet extended release 24 hr 4 mg PO QAM@0800 RF: 0 Onfi 20 mg tablet 20 mg PO BID@,20 RF: 0 Discharge Orders: Discharge ED (Routine); Ordered 10/07/20 Ordered By: Yessica Ramírez Referrals: Harry Valentin, BOARD CERTIFIED BEHAVIORAL ANALYST-C [Primary Care Provider] - 1-3 days Discharge Diet: Usual diet Discharge Activity: Increase activity as tolerated Patient Instructions: Dehydration (ED), Epilepsy (ED), Insomnia (ED) Activity Restrictions/Additional Instructions: Return for any new or worsening symptoms. Follow-up with his primary care provider within 3 days. Continue his home medications. Take the trazodone as needed at night for sleep. Coding Level of Care Code ED Order Desk Clerk for Hao Burleson
[2020-10-07 17:00] VITALS: BP 84/63; PULSE 103; O2SAT 97
[2020-10-07 17:04] LABS: Alanine Aminotransferase 38 U/L (0-41); Alkaline Phosphatase 60 IU/L (40-130); Anion Gap 16.9 (5-19); Aspartate Amino Transferase 42 U/L (0-40); Blood Urea Nitrogen 9 mg/dL (6-20); C Reactive Protein 2.3 mg/L (0.0-4.9); Calcium 8.8 mg/dL (8.5-10.5); Carbon Dioxide 22 mmol/L (22-29); Chloride 105 mmol/L (98-107); Globulin 2.8 g/dL (1.3-4.6); Glomerular Filtration Rate 164.2 mL/min (90-130); Glucose 176 mg/dL (65-115); Lipase 27 U/L (13-60); Osmolality Calculated 293 mOsm/kg (285-295); Potassium 3.9 mmol/L (3.5-5.1); Sodium 140 mmol/L (136-145); Total Bilirubin 0.3 mg/dL (0.15-1.2); Total Protein 6.8 g/dL (6.6-8.7)
[2020-10-07 18:00] VITALS: BP 114/75; RESP 15; O2SAT 98
[2020-10-07] MEDS: sodium chloride 0.9% 1,000 ML 999 ML IV ×2 (18:06→21:01)
[2020-10-07] MEDS: OLANZapine 10 mg VIAL IM (18:06)
[2020-10-07] MEDS: water for injection-sterile 10 ML (18:06)
[2020-10-07 18:49] LABS: Creatine Phosphokinase 125 U/L (39-308)
[2020-10-07] MEDS: LORazepam 2 mg/mL INJ 1 mL IVP (19:16)
[2020-10-07 19:17] VITALS: BP 138/91; PULSE 117; RESP 18; O2SAT 96
[2020-10-07 19:52] LABS: Add Urine Microscopic? NO; Charge for UA Resulting for Rev
[2020-10-07 20:02] LABS: Urine Color Yellow (Yellow)
[2020-10-07 20:03] LABS: Bilirubin Urine Neg (Negative); Blood Urine Neg (Negative); Glucose Urine UA Norm (Normal); Ketones Urine 1+ (Negative); Leukocyte Esterase Urine Negative (Negative); Nitrate Urine Negative (Negative); Protein Urine Trace (Negative); Urine Appearance Clear (CLEAR); Urobilinogen Urine Norm (Negative); pH Urine 5 (5-7)
[2020-10-07] MEDS: trazodone 50 mg Tablet PO (21:50)
== END 2020-10-07 21:51 | disposition home or self-care (01) ==
PROVIDERS: Emergency Provider Family Medicine; PCP Nurse Practitioner
DX: R56.9 Unspecified convulsions (principal); E86.0 Dehydration; G47.00 Insomnia, unspecified; F84.0 Autistic disorder; F90.1 Attention-deficit hyperactivity disorder, predominantly hyperactive type
CPT/HCPCS: 70450; 71045; 80053; 81003; 82550; 83605; 83690; 85025; 86140; 96361; 96374; 96375; 96376; 99284; J2060; J2405; J3490; J7030

== ENCOUNTER → 2020-10-14 11:44 | Outpatient (BNVA) | payer MEDICAID, SELFPAY | PROVIDERS: PCP Nurse Practitioner; Visit Provider Nurse Practitioner | DX: R30.0 Dysuria (principal) | CPT/HCPCS: 81000 ==

== ENCOUNTER → 2021-01-25 07:48 | Outpatient (BNVA) | payer MEDICAID, SELFPAY | PROVIDERS: PCP Nurse Practitioner; Visit Provider Psychiatry & Neurology Psychiatry | DX: F84.0 Autistic disorder (principal); F90.1 Attention-deficit hyperactivity disorder, predominantly hyperactive type | CPT/HCPCS: 99213 ==

== ENCOUNTER → 2021-02-15 15:32 | Outpatient (BNVA) | payer MEDICAID, SELFPAY | PROVIDERS: PCP Nurse Practitioner; Visit Provider Specialist | DX: G40.309 Generalized idiopathic epilepsy and epileptic syndromes, not intractable, without status epilepticus (principal); F84.0 Autistic disorder | CPT/HCPCS: 99214 ==

== ENCOUNTER → 2021-03-23 14:40 | Outpatient (BNVA) | payer MEDICAID, SELFPAY | PROVIDERS: PCP Nurse Practitioner; Visit Provider Specialist | DX: G40.309 Generalized idiopathic epilepsy and epileptic syndromes, not intractable, without status epilepticus (principal); F98.8 Other specified behavioral and emotional disorders with onset usually occurring in childhood and adolescence; F84.0 Autistic disorder | CPT/HCPCS: 99213 ==

== ENCOUNTER → 2021-04-19 07:56 | Outpatient (BNVA) | payer MEDICAID, SELFPAY | PROVIDERS: PCP Nurse Practitioner; Visit Provider Psychiatry & Neurology Psychiatry | DX: F98.8 Other specified behavioral and emotional disorders with onset usually occurring in childhood and adolescence (principal); F84.0 Autistic disorder; F90.1 Attention-deficit hyperactivity disorder, predominantly hyperactive type | CPT/HCPCS: 99213 ==

== ENCOUNTER → 2021-04-28 09:44 | Outpatient (BNVA) | payer MEDICAID, SELFPAY | PROVIDERS: PCP Nurse Practitioner; Visit Provider Nurse Practitioner | DX: Z13.6 Encounter for screening for cardiovascular disorders (principal); D69.6 Thrombocytopenia, unspecified | CPT/HCPCS: 80053; 80061; 85025 ==

== ENCOUNTER → 2021-07-05 14:30 | Outpatient (BNVA) | payer MEDICAID, SELFPAY | PROVIDERS: PCP Nurse Practitioner; Visit Provider Specialist | DX: G40.309 Generalized idiopathic epilepsy and epileptic syndromes, not intractable, without status epilepticus (principal); F98.8 Other specified behavioral and emotional disorders with onset usually occurring in childhood and adolescence; F84.0 Autistic disorder; D69.6 Thrombocytopenia, unspecified | CPT/HCPCS: 99213 ==

== ENCOUNTER → 2021-08-25 08:26 | Outpatient (BNVA) | payer MEDICAID, SELFPAY | PROVIDERS: PCP Nurse Practitioner; Visit Provider Psychiatry & Neurology Psychiatry | DX: F84.0 Autistic disorder (principal); R45.1 Restlessness and agitation; Z79.899 Other long term (current) drug therapy | CPT/HCPCS: 80053; 80164; 80178; 84443; 85025 ==

== ENCOUNTER → 2021-08-30 15:14 | Outpatient (BNVA) | payer MEDICAID, SELFPAY | PROVIDERS: PCP Nurse Practitioner; Visit Provider Specialist | DX: F98.8 Other specified behavioral and emotional disorders with onset usually occurring in childhood and adolescence (principal); G40.309 Generalized idiopathic epilepsy and epileptic syndromes, not intractable, without status epilepticus | CPT/HCPCS: 99213 ==

== ENCOUNTER → 2021-09-25 08:19 | Outpatient (BNVA) | payer MEDICAID, SELFPAY | PROVIDERS: PCP Nurse Practitioner; Visit Provider Psychiatry & Neurology Psychiatry | DX: R29.90 Unspecified symptoms and signs involving the nervous system (principal); F98.8 Other specified behavioral and emotional disorders with onset usually occurring in childhood and adolescence; Z79.899 Other long term (current) drug therapy | CPT/HCPCS: 80178 ==

== ENCOUNTER → 2021-09-27 15:32 | Outpatient (BNVA) | payer MEDICAID, SELFPAY | PROVIDERS: PCP Nurse Practitioner; Visit Provider Specialist | DX: R45.1 Restlessness and agitation (principal); F84.0 Autistic disorder; G40.309 Generalized idiopathic epilepsy and epileptic syndromes, not intractable, without status epilepticus; F98.8 Other specified behavioral and emotional disorders with onset usually occurring in childhood and adolescence; D69.6 Thrombocytopenia, unspecified | CPT/HCPCS: 99212 ==

== ENCOUNTER → 2021-10-04 08:29 | Outpatient (BNVA) | payer MEDICAID, SELFPAY | PROVIDERS: PCP Nurse Practitioner; Visit Provider Psychiatry & Neurology Psychiatry | DX: F84.0 Autistic disorder (principal); F98.8 Other specified behavioral and emotional disorders with onset usually occurring in childhood and adolescence; R45.1 Restlessness and agitation; Z79.899 Other long term (current) drug therapy | CPT/HCPCS: 80178 ==

== ENCOUNTER → 2021-10-20 10:26 | Outpatient (BNVA) | payer MEDICAID, SELFPAY | PROVIDERS: PCP Nurse Practitioner; Visit Provider Nurse Practitioner | DX: R35.0 Frequency of micturition (principal); R45.1 Restlessness and agitation | CPT/HCPCS: 81000 ==

== ENCOUNTER → 2021-11-29 15:31 | Outpatient (BNVA) | payer MEDICAID, SELFPAY | PROVIDERS: PCP Nurse Practitioner; Visit Provider Specialist | DX: G40.309 Generalized idiopathic epilepsy and epileptic syndromes, not intractable, without status epilepticus (principal); F98.8 Other specified behavioral and emotional disorders with onset usually occurring in childhood and adolescence; F84.0 Autistic disorder | CPT/HCPCS: 99213 ==

== ENCOUNTER 2022-03-05 09:12 | Emergency (ER) | payer MEDICAID, SELFPAY ==
--- NOTE | 2022-03-05 09:52 | XR_ITS ---
WS: [id number] Exam: XR wrist LT min 3V* [id number] Date/Time of Exam: 03/05/2022 10:08 AM Reason For Exam: pain There is a comminuted impacted fracture of the distal radius which extends into the radiocarpal joint . There is mild shortening. There is also a small chip fracture of the ulnar styloid. Soft tissue swe lling about the wrist. No other fractures. XR/XR wrist LT min 3V* [id number] IMPRESSION: 1. Comminuted impacted fracture of the distal radius. There is some shortening. Chip fracture of the ulnar styloid.
[2022-03-05 09:54] VITALS: RESP 20
--- NOTE | 2022-03-05 09:54 | W.ED.PSYCHS ---
HPI - Psych General: Chief Complaint: Extremity Injury, Upper Stated Complaint: Right hand injury Time Seen by Provider: 03/05/22 09:18 Source: other (Caregiver) Mode of arrival: ambulatory History of Present Illness: 27-year-old male presents emergency room from a [facility]. He is extremely autistic nonverbal has been violent with staff past multiple times. This morning he had a behavioral outburst and punched a wall has significant swelling of his left wrist. No recent medication changes he is seen at [facility] the last visit was for agitation. Onset (ago): hour(s) Duration: intermittent History of same: Yes Relieving factors: none Review of Systems General: Reports: ROS unobtainable due to mental status (Patient is nonverbal at his baseline unable to give any review of systems) PFSH ED PFSH: Medical History ADHD (attention deficit hyperactivity disorder), predominantly hyperactive impulsive type -f/u at [facility] Autism -Lives in [facility] ([facility]) with 03/09 caregivers -anticipate that will need caregiver present with patient for weaning process and while off vent due to patient's underlying cognitive impairment and behavioral issues Environmental and seasonal allergies Psychiatric care Seizure -Witnessed seizure, first-time event per mother at bedside -Unclear trigger -Given dose of Ativan by EMS on their arrival and was quite somnolent and not really following commands on arrival here -With resulting hypoxia, and noted respiratory acidosis patient was intubated for airway protection -ED physician spoke with Dr. Joaquin who recommended loading with Keppra 1000 mg 3 times daily x 24 hours then 1000 mg twice daily thereafter as well as LP as patient was noted to have a fever and leukocytosis with first-time seizure like episode. CSF analysis benign, gram stain negative, culture prelim negative -continue empiric ampicillin and ceftriaxone for possible meningitis; on isolation precautions -blood cx: orelim negative -Head CT unremarkable -Noted leukocytosis now resolved -UDS negative, negative for salicylates and acetaminophen, negative for alcohol Surgical History No history of previous surgery Family History Other Diabetes Hypertension Social History Smoking and tobacco status: never smoked Second hand smoke exposure: No Smoking risk assessment/counseling performed?: No Alcohol intake: never Desire information about alcohol rehabilitation?: No Counseling given: No Desire information about substance/drug rehabilitation?: No Counseling given: No Adopted: No Caregiver/support person: Yes Lives independently: No Household members: caregiver and other Housing: House Marital status: Single Number of children: 0 Highest education level completed: High School Graduate service: No Current occupational status: disabled Current occupational exposures/hazards: No Pets and animals: No History of recent travel: No Current gender identity: Male Physical Exam HENMT: COMMON NORMALS: normocephalic and hearing grossly normal bilaterally HEAD & SCALP: normocephalic OTHER: Abrasion at the center of the forehead at the hairline Resp: COMMON NORMALS: normal respiratory effort, No retractions, No use of accessory muscles and clear to auscultation bilaterally AUSCULTATION: clear to auscultation bilaterally Cardio: COMMON NORMALS: regular rate, regular rhythm and No murmurs present (Cardio) RATE: regular rate RHYTHM: regular rhythm GI: COMMON NORMALS: Soft to palpation and No hepatosplenomegaly present AUSCULTATION: Yes normoactive bowel sounds PALPATION: Yes Soft to palpation, No Tenderness to palpation present (GI), No Guarding due to palpation present (GI) and Yes No hepatosplenomegaly present Extremity: COMMON NORMALS: normal to inspection, capillary refill normal, no clubbing, cyanosis or edema, no calf tenderness and no pedal edema OTHER: Deformity and swelling of the left wrist Skin: COMMON NORMALS: no rashes or lesions noted GENERAL SKIN EXAM: no rashes or lesions noted Procedures Orthopedic Splinting/Casting Injury #1: Side: left Upper Extremity Injury Location: forearm and wrist Upper Extremity Immobilizer: sling/shoulder immobilizer, volar splint (Volar and dorsal clamshell splint) and Lam wrap Procedural Sedation Indication: fracture/dislocation reduction Preparation: campus monitor applied, pulse oximeter and suction/airway equipment at bedside Fentanyl: IM Fentanyl dose (mcg): 50 Midazolam: IM (6) Patient Tolerated Procedure: well Complications: none Course Vital Signs: Vital signs: Vital Signs Pulse Rate 108 H 03/05/22 12:29 Respiratory Rate 20 H 03/05/22 12:29 Blood Pressure 131/88 03/05/22 12:29 Pulse Oximetry 97 03/05/22 12:29 Oxygen Delivery Me thod 03/05/22 12:29 Oxygen Flow Rate 2 03/05/22 12:29 MDM - Psych Medical Decision Making Patient autistic and nonverbal very difficult to manage and was. He was screaming nonstop in the emergency room. X-ray shows a left distal radius fracture and a small ulnar styloid chip fracture. After conscious sedation placed with placed in a clamshell splint with volar and dorsal aspects 2 extending from the elbow to the fingers. This was secured with a shoulder immobilizer. Discussed with the caregiving staff this will be extremely difficult for them to manage because of his behaviors and nonverbal status. He was listed as allergic to COVID hydrocodone I talked to his mother this was from when evidently was tried to be used for sedation back when he was 8 years old he was given a prescription for hydrocodone he never had a true allergic reaction suspect it was partly due to age. I think it should be trialed again as an adequate pain reliever. Guard is the medicine used I think you will be agitated by this shoulder immobilizer and the forearm splint. We will make arrangements for her to follow-up with orthopedics in the office to have definitive fracture care. Medical Records I reviewed the patient's medical records. Lab Data I reviewed the patient's lab results. Radiology Impressions Wrist X-Ray 03/05/22 09:52 IMPRESSION: 1. Comminuted impacted fracture of the distal radius. There is some shortening. Chip fracture of the ulnar styloid. Discharge Plan Discharge Patient Disposition: Home Clinical Impression: Distal radius fracture, left, Autism Condition: Stable Prescriptions: New hydrocodone-acetaminophen 5-325 mg tablet 1 tab PO Q6H PRN (Reason: pain) Qty: 15 0RF No Action Solarcaine 20-0.13 % aerosol,spray See Rx Instructions .ROUTE .COMPLEX Qty: 226 2RF Rx Instructions: apply topically to sunburn prn for sunburn L.acidophil,parac-S.therm-Bif. 8 billion cell capsule 1 cap PO DAILY@0800 sodium chloride 0.65 % aerosol,spray 1 - 2 spray INTRANASAL Q2H PRN (Reason: nasal congestion) lithium carbonate 600 mg capsule 600 mg PO BID Qty: 60 11RF cephalexin 500 mg capsule 500 mg PO TID Qty: 30 0RF lorazepam [Lorazepam Intensol] 2 mg/mL concentrate 2 mg PO ONCE PRN (Reason: seizures) Qty: 30 2RF Rx Instructions: give 2 mg prn for seizure clobazam [Onfi] 20 mg tablet 40 mg PO DAILY Qty: 60 5RF Rx Instructions: 2 tablets daily (40mg) olanzapine 20 mg tablet 20 mg PO BID Qty: 60 11RF olanzapine 5 mg tablet 5 mg PO DAILY Qty: 30 11RF Rx Instructions: Take with evening dose of Olanzapine 20mg for a total evening dose of 25mg. Chloraseptic Throat [place] 1.4 % aerosol,spray 1 spray MUCOUS MEM .Q6HRS PRN (Reason: sore throat) Qty: 20 5RF magnesium hydroxide [Milk of Magnesia] 400 mg/5 mL suspension See Rx Instructions .ROUTE .COMPLEX PRN (Reason: constipation) Qty: 360 5RF Rx Instructions: 30 mL po after 3rd day of no stool then 30ml daily after than until has bm acetaminophen [Tylenol] 325 mg tablet 650 mg PO Q6H PRN (Reason: fever or pain) Qty: 90 5RF Polysporin 500-10,000 unit/gram ointment See Rx Instructions .ROUTE .COMPLEX Qty: 28.3 0RF Rx Instructions: apply ointment topically to cuts and sore bid prn Aloe Burn Relief 0.5 % aerosol,spray 1 spray topical DAILY PRN (Reason: incase he church) Qty: 127 1RF vitamin E 400 unit capsule 800 unit PO DAILY@0800 Qty: 180 3RF mupirocin 2 % ointment 1 applic topical BID Qty: 22 0RF ascorbate calcium (vitamin C) 500 mg tablet 500 mg PO BID Qty: 60 5RF cholecalciferol (vitamin D3) 25 mcg (1,000 unit) capsule 25 mcg PO DAILY Qty: 30 5RF benztropine 0.5 mg tablet 0.5 mg PO BID@08,20 Qty: 60 11RF olanzapine 10 mg tablet 15 mg PO DAILY PRN (Reason: prior to dr appointments) Qty: 30 1RF loratadine 10 mg tablet 10 mg PO DAILY Qty: 30 5RF divalproex 500 mg tablet extended release 24 hr See Rx Instructions .ROUTE .COMPLEX Qty: 120 5RF Dose Instruction: TAKE TWO TABLETS BY MOUTH TWICE DAILY AT 8:00AM AND 8:00PM Rx Instructions: TAKE TWO TABLETS BY MOUTH TWICE DAILY AT 8:00AM AND 8:00PM MediHoney (honey) 100 % paste 1 applic topical BID Qty: 103 2RF Rx Instructions: apply 2 times day on heels for 3 weeks clindamycin-benzoyl peroxide 1-5 % gel See Rx Instructions .ROUTE .COMPLEX Qty: 45 5RF Dose Instruction: APPLY TO THE AFFECTED AREA(S) TWICE DAILY Rx Instructions: APPLY TO THE AFFECTED AREA(S) TWICE DAILY dextromethorphan polistirex [Delsym 12 hour] 30 mg/5 mL suspension,extended rel 12 hr 10 ml PO Q12H PRN (Reason: cough) Qty: 148 0RF fluoride (sodium) [SF 5000 Plus] 1.1 % cream See Rx Instructions .ROUTE .COMPLEX Qty: 51 2RF Dose Instruction: BRUSH WITH PEA SIZE AMOUNT TWICE DAILY Rx Instructions: BRUSH WITH PEA SIZE AMOUNT TWICE DAILY amitriptyline 50 mg tablet See Rx Instructions .ROUTE .COMPLEX Qty: 30 3RF Dose Instruction: TAKE ONE TABLET BY MOUTH EVERY DAY AT NIGHT Rx Instructions: TAKE ONE TABLET BY MOUTH EVERY DAY AT NIGHT Tylenol Cold Multi-Symptom Day 5-10-325 mg Tablet 2 tab PO Q4H PRN (Reason: Allergy Symptoms) Discharge Orders: Discharge ED (Routine); Ordered 03/05/22 Ordered By: Diomedes Hensley Referrals: Harry Valentin, SPECIFICATION WRITER-C [Primary Care Provider] - Discharge Diet: Usual diet Discharge Activity: Limit activity as instructed Patient Instructions: Opioid Safety, Pain Management Activity Restrictions/Additional Instructions: You were seen today for fracture of the left distal radius. You are placed in a temporary splint and a shoulder immobilizer to protect the fracture. We will set you up to follow-up with orthopedics. The splint should stay in place until you are seen by orthopedics. Use the shoulder immobilizer to prevent use due to behaviors. Can use hydrocodone 1 every 4 hours as needed for pain Coding Level of Care Code ED Sales And Service Consultant for [employer] Fwd Exam Detailed
--- NOTE | 2022-03-05 09:58 | PC.NURSE ---
INFORMED DR. LOWRY THAT I WOULD HOLD ON VS UNTIL PT HAD CALMED DOWN MORE HE VERBALIZED UNDERSTANDING NO FURTHER ORDERS.
[2022-03-05] MEDS: ziprasidone 20 mg/mL SDV 10 MG IM (10:11)
--- NOTE | 2022-03-05 11:08 | PC.NURSE ---
RT IS PRESENT OUTSIDE ROOM ALONG WITH SUCTION EQUIPMENT CM, SPO2, AND NIBP.
--- NOTE | 2022-03-05 11:08 | PC.NURSE ---
ATTEMPTED TO ADM IM INJECTION IN RIGHT DORSOGLUTEAL PT SQUATTED AND TURNED TO THE LEFT CAUSING A LACERATION TO THE RIGHT DORSOGLUTEAL AREA VERTICAL TO INJECTION SITE. NOTIFIED DR. ESSENCE BAILEY TO USE MANUAL HOLD TO ADM IM INJECTION.
[2022-03-05] MEDS: midazolam 1 mg/mL INJ 2 mL 6 MG IM (11:14)
--- NOTE | 2022-03-05 11:15 | PC.NURSE ---
WITH ASSISTANCE OF TECH'S X2 AND SECUTIRYX2 PT PLACED IN MANUAL HOLD ON BED AND IM INJECTION ADM.
--- NOTE | 2022-03-05 11:50 | PC.NURSE ---
INFORMED DR. LOWRY THAT PT IS STAGGERING IN ROOM WITH AN UNSTEADY GAIT AND HAD TO ASSIST PT TO BED. PT REQUIRED TO STAY IN BED FOR SAFETY AFTER ATTEMPTING VERBAL DEESCELATION AND ALLOWING PT TO CONTINUE TO MAKE LOUD INCOMPHRENISBILE NOISES.
[2022-03-05 11:57] VITALS: RESP 20
[2022-03-05] MEDS: fentaNYL 50 mcg/mL INJ 2mL XX (11:57)
[2022-03-05] MEDS: midazolam 1 mg/mL INJ 2 mL 2 MG IM (12:05)
[2022-03-05 12:15] VITALS: BP 127/87; PULSE 108; RESP 20; O2SAT 97
--- NOTE | 2022-03-05 12:15 | PC.NURSE ---
placing splint on left arm.
--- NOTE | 2022-03-05 12:28 | DCPLANNER ---
Addendum entered by Sepideh Alvarado 04/11/22 07:46: Patient had a follow up appointment scheduled with ortho - patient did attend appointment Addendum entered by Sepideh Alvarado 03/08/22 11:32: Patient has a follow up appointment scheduled for Sunday, March 13, [address]22 at 10:[address] Young at ortho. Clinic will call patient with appointment information. Original Note: talent acquisition manager had message to schedule a follow up appointment for patient with ortho. talent acquisition manager sent patients information to the front office staff at ortho. Patients information will be printed and reviewed. Clinic will call patient with appointment information.
[2022-03-05 12:29] VITALS: BP 131/88; PULSE 108; RESP 20; O2SAT 97
[2022-03-05 13:00] VITALS: BP 137/92; PULSE 106; RESP 23; O2SAT 99
--- NOTE | 2022-03-05 13:19 | PC.NURSE ---
PT IN ROOM AMB AROUND ROOM WITH OUT ASSISTANCE. NOTIFIED DR. ESSENCE BAILEY TO CONTINUE WITH DC IF CAREGIVER AGREES THAT THEY ARE CAPABLE OF TAKING CARE OF PT. CAREGIVER VERBALIZED THAT PT IS READY TO GO.
== END 2022-03-05 13:22 | disposition home or self-care (01) ==
PROVIDERS: Emergency Provider Family Medicine; PCP Nurse Practitioner
DX: S52.502A Unspecified fracture of the lower end of left radius, initial encounter for closed fracture (principal); F84.0 Autistic disorder; W22.09XA Striking against other stationary object, initial encounter
CPT/HCPCS: 73110; 96372; 99285; 99291; J2250; J3010; J3486

== ENCOUNTER → 2022-03-20 10:06 | Outpatient (BNVA) | payer MEDICAID, SELFPAY | PROVIDERS: PCP Nurse Practitioner; Referring Provider Family Medicine; Visit Provider Orthopaedic Surgery | DX: S52.532A Colles' fracture of left radius, initial encounter for closed fracture (principal); W19.XXXA Unspecified fall, initial encounter | CPT/HCPCS: 25600 ==

== ENCOUNTER → 2022-03-26 09:11 | Outpatient (BNVA) | payer MEDICAID, SELFPAY | PROVIDERS: PCP Nurse Practitioner; Visit Provider Nurse Practitioner | DX: Z79.899 Other long term (current) drug therapy (principal); F98.8 Other specified behavioral and emotional disorders with onset usually occurring in childhood and adolescence | CPT/HCPCS: 80053; 80178; 84443 ==

== ENCOUNTER → 2022-04-11 14:36 | Outpatient (BNVA) | payer MEDICAID, SELFPAY | PROVIDERS: PCP Nurse Practitioner; Visit Provider Orthopaedic Surgery | DX: S52.502D Unspecified fracture of the lower end of left radius, subsequent encounter for closed fracture with routine healing (principal); W19.XXXD Unspecified fall, subsequent encounter | CPT/HCPCS: 99024 ==

== ENCOUNTER → 2022-05-04 08:05 | Outpatient (BNVA) | payer MEDICAID, SELFPAY | PROVIDERS: PCP Nurse Practitioner; Referring Provider Psychiatry & Neurology Psychiatry; Visit Provider Psychiatry & Neurology Psychiatry | DX: F98.8 Other specified behavioral and emotional disorders with onset usually occurring in childhood and adolescence (principal); Z79.899 Other long term (current) drug therapy | CPT/HCPCS: 80164; 80178 ==

== ENCOUNTER → 2022-05-16 15:48 | Outpatient (BNVA) | payer MEDICAID, SELFPAY | PROVIDERS: PCP Nurse Practitioner; Visit Provider Specialist | DX: G40.309 Generalized idiopathic epilepsy and epileptic syndromes, not intractable, without status epilepticus (principal); F98.8 Other specified behavioral and emotional disorders with onset usually occurring in childhood and adolescence; F91.1 Conduct disorder, childhood-onset type | CPT/HCPCS: 99213 ==

== ENCOUNTER → 2022-07-04 15:28 | Outpatient (BNVA) | payer MEDICAID, SELFPAY | PROVIDERS: PCP Nurse Practitioner; Visit Provider Nurse Practitioner | DX: R30.0 Dysuria (principal) | CPT/HCPCS: 81000 ==

== ENCOUNTER 2022-07-13 10:40 | Emergency (ER) | payer MEDICAID, SELFPAY ==
[2022-07-13 10:57] VITALS: PULSE 111; RESP 19; TEMP 36.9; O2SAT 98; BMI 25.7
--- NOTE | 2022-07-13 11:03 | USCV_ITS ---
Bj Herron Age: 27 Gender: M : 1995 Exam Date: 07/13/2022 11:20 Ordering Phys: Yordy Stewart DO Technologist: Exam [place] [facility] [place]: bruise posterior lt leg PROCEDURES: Venous duplex imaging was performed in only the left lower extremity. FINDINGS: Very limited exam, pt with limited mental capacity and unable to hold still for very long, fv without dvt and posterior thigh bruise unremarkable CONCLUSIONS Limited exam No evidence of left femoral vein DVT Mart Simmons MD (Electronically Signed) Final Date: 13 July 2022 12:02 S
--- NOTE | 2022-07-13 11:03 | XR_ITS ---
WS: [id number] Exam: XR femur LT min 2V* [id number] Date/Time of Exam: 07/13/2022 11:08 AM Reason For Exam: limp and non verbal No femoral fracture or dislocation. There is moderate degenerative narrowing of the joint compartment of the left hip. Soft tissues are unremarkable. XR/XR femur LT min 2V* [id number] IMPRESSION: 1. No femoral fracture. 2. 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
--- NOTE | 2022-07-13 11:05 | ED_ITS ---
HPI - Extremity Problem General: Chief complaint: Extremity Problem,Nontraumatic Stated complaint: Left upper leg pain/swelling Time Seen by Provider: 07/13/22 10:55 Source: other ([place]) Limitations: other (Patient is nonverbal.) History of Present Illness: This autistic 27-year-old was brought in by his county director. He lives at a [place] [facility] and it was noted that he seemed to be limping over the last 24 hours and the county director noted this morning when she saw him that he seemed to have some enlargement and bruising of his left leg. They are unaware of any falls or injury but again he is autistic and essentially nonverbal in terms of any active communication and so they are unable to determine if anything occurred. MD Complaint: extremity swelling Associated symptoms: Reports no associated symptoms; Deny fever(s) Review of Systems Const: Denies: fever(s) or chills Card: Denies: syncope or pre-syncope Resp: Denies: productive cough, non-productive cough or wheezing GI: Denies: nausea, vomiting or diarrhea Musc: Reports: extremity swelling; Denies: joint pain, joint swelling or joint redness Jakub/Lymph: Denies: easy bruising or easy bleeding PFSH ED PFSH: Medical History ADHD (attention deficit hyperactivity disorder), predominantly hyperactive impulsive type -f/u at [facility] Autism -Lives in [place] [facility] [place] ([facility]) with 03/09 caregivers -anticipate that will need caregiver present with patient for weaning process and while off vent due to patient's underlying cognitive impairment and behavioral issues Environmental and seasonal allergies Psychiatric care Seizure -Witnessed seizure, first-time event per mother at bedside -Unclear trigger -Given dose of Ativan by EMS on their arrival and was quite somnolent and not really following commands on arrival here -With resulting hypoxia, and noted respiratory acidosis patient was intubated for airway protection -ED physician spoke with Dr. Joaquin who recommended loading with Keppra 1000 mg 3 times daily x 24 hours then 1000 mg twice daily thereafter as well as LP as patient was noted to have a fever and leukocytosis with first-time seizure like episode. CSF analysis benign, gram stain negative, culture prelim negative -continue empiric ampicillin and ceftriaxone for possible meningitis; on isolation precautions -blood cx: orelim negative -Head CT unremarkable -Noted leukocytosis now resolved -UDS negative, negative for salicylates and acetaminophen, negative for alcohol Surgical History No history of previous surgery Family History Other Diabetes Hypertension Social History Smoking and tobacco status: never smoked Second hand smoke exposure: No Smoking risk assessment/counseling performed?: No Alcohol intake: never Desire information about alcohol rehabilitation?: No Counseling given: No Substance/Drug Use: never Desire information about substance/drug rehabilitation?: No Counseling given: No Adopted: No Caregiver/support person: Yes Lives independently: No Household members: caregiver and other Housing: House Marital status: Single Number of children: 0 Highest education level completed: High School Graduate service: No Current occupational status: disabled Current occupational exposures/hazards: No Pets and animals: No Do you think of yourself as: Straight/Heterosexual Current gender identity: Male Physical Exam Narrative: EXAM NARRATIVE: Patient is alert. He makes good eye contact and intermittently will cry out is his typical communicative skills. Will allow the examiner to examine him without difficulty. Const: COMMON NORMALS: no acute distress, average body habitus, healthy appearing and alert HENMT: COMMON NORMALS: normocephalic, atraumatic and moist oral mucous membra juliana HEAD & SCALP: normocephalic and atraumatic Eye: COMMON NORMALS: Equal, round and reactive pupils present PUPIL: Yes Equal, round and reactive pupils present Neck/C-Spine: COMMON NORMALS: full ROM Resp: COMMON NORMALS: normal respiratory effort and No use of accessory muscles Cardio: COMMON NORMALS: regular rate, regular rhythm and Peripheral pulses 2+ throughout RATE: regular rate RHYTHM: regular rhythm PERIPHERAL PULSES: Peripheral pulses 2+ throughout Back/Pelvis: COMMON NORMALS: thoracic and lumbar spine normal to inspection and thoraco-lumbar ROM normal Extremity: LEFT LOWER EXTREMITY: Yes upper leg OTHER: Examination with attention of his left lower extremity reveals grossly normal- appearing anteriorly posteriorly he has area of ecchymosis from the knee joint proximal approximately 12 to 14 cm. The ecchymosis is in various colors and stages of savana yellow etc. There is no proximal swelling and or bruising. There is no palpable cord. He ranges his hip knee ankle and full range of motion without any discomfort or restriction. No deformity. And he will move his extremity spontaneously without any restriction. Peripheral pulses are palpable and equal. There is no calf swelling or tenderness. No proximal lymphangitis or lymphadenopathy. EXTREMITY IMAGE (BACK): 1. Area of bruising Neuro: SENSORIUM/ORIENTATION: Yes alert Skin: COMMON NORMALS: turgor normal GENERAL SKIN EXAM: turgor normal, ecchymosis (Left posterior leg) and no erythema Course 2 Vital Signs: Vital signs: Vital Signs Temperature 98.4 F 07/13/22 10:57 Pulse Rate 111 H 07/13/22 10:57 Respiratory Rate 19 H 07/13/22 10:57 Pulse Oximetry 98 07/13/22 10:57 Oxygen Delivery Me thod Room Air 07/13/22 10:57 MDM - Extremity (Nontraumatic) Medical Decision Making This patient was referred to the emergency department for further evaluation of bruising to his left leg. He is autistic and so history is limited to what the county director can provide us. She is unaware of any known injury. He is physically vigorous and active throughout the [place] [facility] so there is a certain possibility he could have done something to injure himself. It came to their attention because they noted he was limping and then looked at his leg and saw the bruising. Clinical examination did not suggest any fracture or pertubation in his joint function on that involved extremity. He had normal range of motion. Normal strength normal capillary refill etc. Unlikely to be DVT fracture etc. however imaging was obtained to help rule out those potential causes given his autistic nature. Ultrasound was obtained did not show any noncompressibility of the deep venous system. His x-rays were also reassuring. Current picture of the bruise certainly is consistent with that which 1 cc with a strain or mild tear of the rectus femoris or hamstring muscle group. He appears to have full voluntary motion of that leg so unlikely to be a complete tear. Discussed expected course with county director with follow-up instructions. Lab Data I reviewed the patient's lab results. Radiology Impressions Femur X-Ray 07/13/22 11:03 IMPRESSION: 1. No femoral fracture. 2. 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 Discharge Plan Discharge Patient Disposition: Home Clinical Impression: Strain of left hamstring muscle Condition: Stable Prescriptions: No Action L.acidophil,parac-S.therm-Bif. 8 billion cell capsule 1 cap PO DAILY@0800 sodium chloride 0.65 % aerosol,spray 1 - 2 spray INTRANASAL Q2H PRN (Reason: nasal congestion) divalproex 500 mg tablet extended release 24 hr See Rx Instructions .ROUTE .COMPLEX Qty: 120 5RF Dose Instruction: TAKE TWO TABLETS BY MOUTH TWICE DAILY AT 8:00AM AND 8:00PM Rx Instructions: TAKE TWO TABLETS BY MOUTH TWICE DAILY AT 8:00AM AND 8:00PM lithium carbonate 600 mg capsule 600 mg PO BID Qty: 60 11RF acetaminophen [Tylenol] 325 mg tablet 650 mg PO Q6H PRN (Reason: fever or pain) Qty: 90 5RF ascorbate calcium (vitamin C) 500 mg tablet 500 mg PO BID Qty: 60 5RF loratadine 10 mg tablet 10 mg PO DAILY Qty: 30 5RF lorazepam [Lorazepam Intensol] 2 mg/mL concentrate 2 mg PO ONCE PRN (Reason: seizures) Qty: 30 2RF Rx Instructions: give 2 mg prn for seizure olanzapine 20 mg tablet 20 mg PO BID Qty: 60 11RF Chloraseptic Throat [place] 1.4 % aerosol,spray 1 spray MUCOUS MEM .Q6HRS PRN (Reason: sore throat) Qty: 20 5RF magnesium hydroxide [Milk of Magnesia] 400 mg/5 mL suspension See Rx Instructions .ROUTE .COMPLEX PRN (Reason: constipation) Qty: 360 5RF Rx Instructions: 30 mL po after 3rd day of no stool then 30ml daily after than until has bm mupirocin 2 % ointment 1 applic topical BID Qty: 22 0RF benztropine 0.5 mg tablet 0.5 mg PO BID@08,20 Qty: 60 11RF MediHoney (honey) 100 % paste 1 applic topical BID Qty: 103 2RF Rx Instructions: apply 2 times day on heels for 3 weeks clindamycin-benzoyl peroxide 1-5 % gel See Rx Instructions .ROUTE .COMPLEX Qty: 45 5RF Dose Instruction: APPLY TO THE AFFECTED AREA(S) TWICE DAILY Rx Instructions: APPLY TO THE AFFECTED AREA(S) TWICE DAILY fluoride (sodium) [SF 5000 Plus] 1.1 % cream See Rx Instructions .ROUTE .COMPLEX Qty: 51 2RF Dose Instruction: BRUSH WITH PEA SIZE AMOUNT TWICE DAILY Rx Instructions: BRUSH WITH PEA SIZE AMOUNT TWICE DAILY vitamin E 268 mg (400 unit) capsule 536 mg PO DAILY Qty: 180 3RF bacitracin zinc-polymyxin B [Polysporin] 500-10,000 unit/gram ointment See Rx Instructions .ROUTE .COMPLEX Qty: 28.3 0RF Rx Instructions: apply ointment topically to cuts and sore bid prn Solarcaine 20-0.13 % aerosol,spray See Rx Instructions .ROUTE .COMPLEX Qty: 226 2RF Rx Instructions: apply topically to sunburn prn for sunburn levothyroxine [Synthroid] 25 mcg tablet 25 mcg PO DAILY Qty: 30 11RF clobazam [Onfi] 20 mg tablet 40 mg PO DAILY Qty: 60 5RF Rx Instructions: 2 tablets daily (40mg) dextromethorphan polistirex [Delsym 12 hour] 30 mg/5 mL suspension,extended rel 12 hr 10 ml PO Q12H PRN (Reason: cough) Qty: 148 0RF hydrocodone-acetaminophen 5-325 mg tablet 1 tab PO Q6H PRN (Reason: pain) Qty: 15 0RF olanzapine 5 mg tablet 5 mg PO BEDTIME Rx Instructions: Take with evening dose of Olanzapine 20mg for a total evening dose of 25mg. amitriptyline 50 mg tablet 50 mg PO BEDTIME cholecalciferol (vitamin D3) 25 mcg (1,000 unit) capsule 25 mcg PO BEDTIME Discharge Orders: Discharge ED (Routine); Ordered 07/13/22 Ordered By: Yordy Stewart Referrals: Harry Valentin, [facility] [Primary Care Provider] - 2 weeks Discharge Diet: Usual diet Discharge Activity: Increase activity as tolerated Patient Instructions: Opioid Safety, Pain Management Activity Restrictions/Additional Instructions: As we discussed while in the emergency department Bj has no evidence of a broken bone in his left leg, a joint injury, or other serious condition such as a blood clot etc. He appears to have strained or has suffered tear in the muscle of his left posterior leg which is caused typical bruising under the skin. This should heal over the next 2 to 3 weeks. You should allow him to do his normal activity as he will be the limiting factor in what he does. If he develops new or worsening symptoms return to the his primary care clinic for reevaluation or we are happy to reevaluate him in the emergency department at any time. Coding Level of Care Code ED Diversity Manager for Hao Burleson
== END 2022-07-13 12:04 | disposition home or self-care (01) ==
PROVIDERS: Emergency Provider Emergency Medicine; PCP Nurse Practitioner
DX: S76.312A Strain of muscle, fascia and tendon of the posterior muscle group at thigh level, left thigh, initial encounter (principal); X58.XXXA Exposure to other specified factors, initial encounter
CPT/HCPCS: 73552; 93971; 99284

== ENCOUNTER → 2022-08-27 08:26 | Outpatient (BNVA) | payer MEDICAID, SELFPAY | PROVIDERS: PCP Nurse Practitioner; Visit Provider Psychiatry & Neurology Psychiatry | DX: T56.891A Toxic effect of other metals, accidental (unintentional), initial encounter (principal); E03.2 Hypothyroidism due to medicaments and other exogenous substances; Z79.899 Other long term (current) drug therapy | CPT/HCPCS: 80061; 80178; 83036; 84443 ==

== ENCOUNTER → 2022-11-05 08:20 | Outpatient (BNVA) | payer MEDICAID, SELFPAY | PROVIDERS: PCP Nurse Practitioner; Visit Provider Psychiatry & Neurology Psychiatry | DX: Z79.899 Other long term (current) drug therapy (principal); E03.2 Hypothyroidism due to medicaments and other exogenous substances; T56.891A Toxic effect of other metals, accidental (unintentional), initial encounter | CPT/HCPCS: 80053; 80178; 84443 ==

== ENCOUNTER → 2022-11-20 08:42 | Outpatient (BNVA) | payer MEDICAID, SELFPAY | PROVIDERS: PCP Nurse Practitioner; Visit Provider Nurse Practitioner | DX: Z79.899 Other long term (current) drug therapy (principal); T56.891A Toxic effect of other metals, accidental (unintentional), initial encounter; E03.2 Hypothyroidism due to medicaments and other exogenous substances; D69.6 Thrombocytopenia, unspecified; E55.9 Vitamin D deficiency, unspecified; K12.2 Cellulitis and abscess of mouth; Z71.89 Other specified counseling; J30.89 Other allergic rhinitis; X58.XXXA Exposure to other specified factors, initial encounter | CPT/HCPCS: 80053; 80061; 80178; 82306; 84295; 84443; 85025 ==

== ENCOUNTER → 2023-04-26 08:33 | Outpatient (BNVA) | payer MEDICAID, SELFPAY | PROVIDERS: PCP Nurse Practitioner; Visit Provider Specialist | DX: Z79.899 Other long term (current) drug therapy (principal); T56.891A Toxic effect of other metals, accidental (unintentional), initial encounter; E03.2 Hypothyroidism due to medicaments and other exogenous substances | CPT/HCPCS: 80048; 80164; 80178 ==

== ENCOUNTER → 2023-08-06 09:33 | Outpatient (BNVA) | payer MEDICAID, SELFPAY | PROVIDERS: PCP Nurse Practitioner; Visit Provider Nurse Practitioner | DX: R50.9 Fever, unspecified (principal); Z79.899 Other long term (current) drug therapy | CPT/HCPCS: 71046; 80053; 81000; 82306; 84443; 85025; 87400; 87426 ==

== ENCOUNTER 2023-08-14 10:30 | Emergency (ER) | payer MEDICAID, SELFPAY ==
[2023-08-14 10:37] VITALS: BP 147/87; PULSE 115; RESP 25; TEMP 36.9; O2SAT 93; BMI 23.7
[2023-08-14] MEDS: LORazepam 2 mg/mL INJ 1 mL (10:54)
--- NOTE | 2023-08-14 11:19 | XR_ITS ---
WS: [id number] XR chest 1V portable [id number] REASON FOR EXAM: recent pna FINDINGS: The heart and mediastinum are within normal limits. No acute pulmonary parenchymal or pleural abnormality. No significant abnormality of the bony thorax. XR/XR chest 1V portable [id number] IMPRESSION: No acute chest abnormality.
[2023-08-14] MEDS: OLANZapine 10 mg ODT 20 MG PO (11:20)
--- NOTE | 2023-08-14 11:21 | W.ED.SEIZURE ---
HPI - Seizure General: Chief Complaint: Seizure Stated Complaint: seizures Time Seen by Provider: 08/14/23 10:40 History of Present Illness: HPI Narrative: 28-year-old male presents emergency department chief complaint of breakthrough seizure prior to arrival patient has a recent pneumonia history just stopping his last medication for his antibiotic today patient has a longstanding history of seizures last was about 2 to 3 years ago patient is on Depakote for the patient was in a sitting seated position watching TV when she had tonic-clonic activity affecting left side of his body which was unresponsive for couple minutes patient did not bite his tongue or having loss of incontinence patient presents here by his caregivers for further assessment and management the patient has had increased agitation lately as well as difficulty with sleep. Seizure History: Yes Associated symptoms: Deny chest pain, chills, fever(s) or malaise Review of Systems General: Reports: 10 or more systems reviewed and unremarkable except in HPI and below Const: Denies: fever(s), chills, fatigue or malaise Eyes: Denies: change in vision or blurry vision Card: Denies: chest pain or palpitations Resp: Denies: dyspnea or productive cough GI: Denies: abdominal pain, nausea or vomiting : Denies: flank pain Musc: Denies: extremity pain or extremity swelling Skin/Breast: Denies: rash or pruritus Neuro: Denies: headache(s) Psych: Denies: anxiety or depression Jakub/Lymph: Denies: easy bleeding All/Imm: Denies: urticaria, throat swelling or facial swelling PFSH ED PFSH: Medical History Psychiatric care Environmental and seasonal allergies Seizure ADHD (attention deficit hyperactivity disorder), predominantly hyperactive impulsive type -f/u at [facility] Autism -Lives in long term ([facility]) with 24/7 caregivers Surgical History No history of previous surgery Family History Other Diabetes Hypertension Social History Smoking and tobacco/nicotine status: never used tobacco/nicotine Second hand smoke exposure: No Alcohol intake: never Substance/Drug Use: never Adopted: No Caregiver/support person: Yes Lives independently: No Household members: caregiver and other Housing: House Marital status: Single Number of children: 0 Highest education level completed: High School Graduate service: No Current occupational status: disabled Current occupational exposures/hazards: No Pets and animals: No Do you think of yourself as: Straight/Heterosexual Current gender identity: Male Physical Exam Narrative: EXAM NARRATIVE: Patient is nonverbal autistic he appears to be somewhat agitated no focal neurodeficit appreciated no obvious external trauma appreciated. Const: COMMON NORMALS: no acute distress (Patient appears to be at baseline per caregiver, slightly agitated) and healthy appearing HENMT: COMMON NORMALS: normocephalic and atraumatic HEAD & SCALP: normocephalic and atraumatic Eye: COMMON NORMALS: Equal, round and reactive pupils present and EOMs intact bilaterally PUPIL: Yes Equal, round and reactive pupils present Neck/C-Spine: COMMON NORMALS: full ROM, supple and no JVD Lymph: LYMPHATIC: no lymphadenopathy noted Chest: COMMONS NORMALS: normal inspection of the chest and normal palpation of entire chest wall Resp: COMMON NORMALS: normal respiratory effort, No retractions and clear to auscultation bilaterally EFFORT & INSPECTION: Yes able to speak in complete sentences and Yes symmetric chest movement AUSCULTATION: clear to auscultation bilaterally Cardio: COMMON NORMALS: no JVD, regular rate and regular rhythm RATE: regular rate RHYTHM: regular rhythm GI: COMMON NORMALS: Normal to inspection, nondistended, normoactive bowel sounds present, Soft to palpation and non-tender INSPECTION: Yes normal to inspection PALPATION: Yes Soft to palpation : COMMON NORMALS: Yes no CVA tenderness BLADDER/KIDNEY EXAM: Yes no CVA tenderness Back/Pelvis: COMMON NORMALS: no CVA tenderness Extremity: COMMON NORMALS: normal to inspection and full ROM Neuro: COMMON NORMALS: CN's II-XII intact bilaterally, moves all extremities and no focal motor deficits Psych: COMMON NORMALS: mental status grossly normal, Normal thought process present, cooperative and normal affect THOUGHT PROCESS: Normal thought process present Skin: COMMON NORMALS: no rashes or lesions noted GENERAL SKIN EXAM: no rashes or lesions noted Course Vital Signs: Vital signs: Vital Signs Temperature 98.5 F 08/14/23 10:37 Pulse Rate 115 H 08/14/23 10:37 Respiratory Rate 25 H 08/14/23 10:37 Blood Pressure 147/87 08/14/23 10:37 Pulse Oximetry 93 08/14/23 10:37 Oxygen Delivery Me thod Nasal Cannula 08/14/23 10:37 Oxygen Flow Rate 2 08/14/23 10:37 MDM - Seizure MDM Narrative Medical decision making narrative: Due to patient's symptoms and condition obvious established patient placement placed into the seizure precautions lithium level lab work will be obtained we will continue to follow. It appears that recently per the patient's caregivers she is having sleeping sleep deprivation as well as additional issues with mood which may be contributing to his breakthrough seizure will continue to follow. Patient's lab work and urinalysis came back unremarkable chest x-ray also appears to have no obvious acute process. Patient had no additional breakthrough seizures during stay in emergency department patient stable for discharge home advised to continue with his current medication regimen advised further follow-up with primary care as needed in which to return the interim if any of his symptoms persist or worse Lab Data 08/14/23 11:31 08/14/23 11:31 Labs: Radiology Impressions Chest X-Ray 08/14/23 11:19 IMPRESSION: No acute chest abnormality. Laboratory Results WBC 9.73 10^3/uL (3.29-11.43) 08/14/23 11:31 RBC 5.56 10^6/uL (3.85-5.65) 08/14/23 11:31 Hgb 15.40 g/dL (11.27-16.99) 08/14/23 11:31 Hct 47.7 % (37-53) 08/14/23 11:31 MCV 85.8 fl (82-101) 08/14/23 11:31 MCH 27.7 pg (27-33) 08/14/23 11:31 MCHC 32.3 g/dL (30-55) 08/14/23 11:31 RDW 12.6 % (12.1-15.1) 08/14/23 11:31 Plt Count 256 10^3/cmm (157-399) 08/14/23 11:31 MPV 9.7 fL (7.4-10.4) 08/14/23 11:31 Neut % (Auto) 73.7 % 08/14/23 11:31 Lymph % (Auto) 17.0 % 08/14/23 11:31 Divide % (Auto) 6.9 % 08/14/23 11:31 Eos % (Auto) 0.7 % 08/14/23 11:31 Baso % (Auto) 0.3 % 08/14/23 11:31 Neut # (Auto) 7.17 10^3/uL (1.8-7.7) 08/14/23 11:31 Lymph # (Auto) 1.7 10^3/uL (0.8-4.8) 08/14/23 11:31 Divide # (Auto) 0.7 10^3/uL (0.2-0.9) 08/14/23 11:31 Eos # (Auto) 0.1 10^3/uL (0.0-0.8) 08/14/23 11:31 Baso # (Auto) 0.0 10^3/uL (0.0-0.1) 08/14/23 11:31 Nucleated RBC % (auto) 0 % 08/14/23 11:31 Nucleated RBCs # 0.0 /100WBC 08/14/23 11:31 Sodium 138 mmol/L (136-145) 08/14/23 11:31 Potassium 4.4 mmol/L (3.5-5.1) 08/14/23 11:31 Chloride 103 mmol/L (98-107) 08/14/23 11:31 Carbon Dioxide 21 mmol/L (22-29) L 08/14/23 11:31 Anion Gap 18.4 (5-19) 08/14/23 11:31 BUN 9 mg/dL (6-20) 08/14/23 11:31 Creatinine 0.7 mg/dL (0.7-1.2) 08/14/23 11:31 GFR Calculation 134.3 mL/min (90-130) H 08/14/23 11:31 Glucose 94 mg/dL (65-115) 08/14/23 11:31 Calculated Osmolality 284 mOsm/kg (285-295) L 08/14/23 11:31 Calcium 9.3 mg/dL (8.5-10.5) 08/14/23 11:31 Magnesium 2.4 mg/dL (1.7-2.3) H 08/14/23 11:31 Total Bilirubin 0.3 mg/dL (0.15-1.2) 08/14/23 11:31 AST 23 U/L (0-40) 08/14/23 11:31 ALT 18 U/L (0-41) 08/14/23 11:31 Alkaline Phosphatase 67 U/L (40-130) 08/14/23 11:31 C-Reactive Protein 3.0 mg/L (0.0-4.9) 08/14/23 11:31 Total Protein 8.3 g/dL (6.6-8.7) 08/14/23 11:31 Albumin 4.0 g/dL (3.5-5.2) 08/14/23 11:31 Globulin 4.3 g/dL (1.3-4.6) 08/14/23 11:31 Urine Color Yellow (Yellow) 08/14/23 12:19 Urine Appearance Clear (CLEAR) 08/14/23 12:19 Urine pH 6.5 (5-7) 08/14/23 12:19 Ur Specific [place] 1.010 (1.005-1.030) 08/14/23 12:19 Urine Protein Neg (Negative) 08/14/23 12:19 Urine Glucose (UA) Norm (Normal) 08/14/23 12:19 Urine Ketones Negative (Negative) 08/14/23 12:19 Urine Blood Neg (Negative) 08/14/23 12:19 Urine Nitrate Negative (Negative) 08/14/23 12:19 Urine Bilirubin Neg (Negative) 08/14/23 12:19 Urine Urobilinogen Neg mg/dL (Negative) 08/14/23 12:19 Ur Leukocyte Esterase Negative (Negative) 08/14/23 12:19 [place] 0.5 mmol/L (0.6-1.2) L 08/14/23 11:37 All radiology interpretation(s) finalized by discharge Discharge Plan Discharge Patient Disposition: Home Clinical Impression: Breakthrough seizure Condition: Stable Prescriptions: No Action acetaminophen [Tylenol] 325 mg tablet 650 mg PO Q6H PRN (Reason: fever or pain) Qty: 90 5RF Saccharomyces boulardii [Florastor] 250 mg capsule 250 mg PO BID Qty: 60 2RF clindamycin phosphate [Cleocin T] 1 % lotion 1 applic topical DAILY Qty: 60 5RF Rx Instructions: apply to face amoxicillin 500 mg capsule 1,000 mg PO Q8H 7 Days Qty: 42 0RF Solarcaine 20-0.13 % aerosol,spray See Rx Instructions .ROUTE .COMPLEX Qty: 226 2RF Rx Instructions: Apply topically as needed to sunburn. olanzapine 5 mg tablet 5 mg PO BEDTIME Qty: 30 11RF Rx Instructions: Take with evening dose of Olanzapine 20mg for a total evening dose of 25mg. magnesium hydroxide [Milk of Magnesia] 400 mg/5 mL suspension See Rx Instructions .ROUTE .COMPLEX PRN (Reason: constipation) Qty: 360 5RF Rx Instructions: 30 mL po after 3rd day of no stool then 30ml daily after than until has bm dextromethorphan polistirex [Delsym 12 hour] 30 mg/5 mL suspension,extended rel 12 hr 10 ml PO Q12H PRN (Reason: cough) Qty: 148 5RF clobazam [Onfi] 20 mg tablet 40 mg PO DAILY Qty: 60 5RF divalproex 500 mg tablet extended release 24 hr See Rx Instructions .ROUTE .COMPLEX Qty: 120 5RF Dose Instruction: TAKE TWO TABLETS BY MOUTH TWICE DAILY AT 8:00AM AND 8:00PM Rx Instructions: TAKE TWO TABLETS BY MOUTH TWICE DAILY AT 8:00AM AND 8:00PM cholecalciferol (vitamin D3) 25 mcg (1,000 unit) capsule 25 mcg PO BEDTIME Qty: 30 5RF vitamin E 268 mg (400 unit) capsule 536 mg PO DAILY Qty: 180 3RF loratadine 10 mg tablet 10 mg PO DAILY Qty: 30 5RF ascorbate calcium (vitamin C) 500 mg tablet 500 mg PO BID Qty: 60 5RF olanzapine 20 mg tablet 20 mg PO DAILY PRN (Reason: agitation) Qty: 30 11RF benztropine 0.5 mg tablet See Rx Instructions .ROUTE .COMPLEX Qty: 60 11RF Dose Instruction: TAKE ONE TABLET BY MOUTH TWICE DAILY AT 8:00AM AND 8:00PM Rx Instructions: TAKE ONE TABLET BY MOUTH TWICE DAILY AT 8:00AM AND 8:00PM levothyroxine 50 mcg capsule 50 mcg PO DAILY Qty: 30 5RF sunscreen SPF 60 lotion See Rx Instructions topical .COMPLEX Qty: 59 5RF Rx Instructions: apply to body as needed to prevent sunburn topically; lithium carbonate 150 mg capsule 150 mg PO BEDTIME amitriptyline 50 mg tablet 50 mg PO QPM olanzapine 20 mg tablet 20 mg PO BID [place] 5000 Plus 1.1 % cream 1 applic dental BEDTIME Discharge Orders: Discharge ED (Routine); Ordered 08/14/23 Ordered By: Ashwin Alvarez Referrals: Harry Valentin FNP-C [Primary Care Provider] - 1-3 days Discharge Diet: Advance as tolerated Discharge Activity: Resume usual activity Patient Instructions: Seizures Activity Restrictions/Additional Instructions: Please further follow-up your primary care doctor as needed in 2 to 3 days continue current medication regimen for your seizures please return the interim if any of her symptoms persist or worse no obvious abnormalities were noted on your lab work to suggest any reduction in seizure threshold I suspect that the main concern was probably your sleeping difficulties as well as agitation. Coding Level of Care Code ED It Systems Analyst for Hao Burleson
[2023-08-14 11:41] LABS: Basophils % 0.3 %; Eosinophils # 0.1 10^3/uL (0.0-0.8); Eosinophils % 0.7 %; Hematocrit 47.7 % (37-53); Lymphocytes # 1.7 10^3/uL (0.8-4.8); Mean Corpuscular HGB Conc 32.3 g/dL (30-55); Mean Corpuscular Hemoglobin 27.7 pg (27-33); Mean Corpuscular Volume 85.8 fl (82-101); Mean Platelet Volume 9.7 fL (7.4-10.4); Monocytes # 0.7 10^3/uL (0.2-0.9); Monocytes % 6.9 %; Neutrophils # 7.17 10^3/uL (1.8-7.7); Neutrophils % 73.7 %; Nucleated Red Blood Cells % 0 %; Platelet Count 256 10^3/cmm (157-399); Red Blood Count 5.56 10^6/uL (3.85-5.65); Red Cell Distribution Width 12.6 % (12.1-15.1); White Blood Count 9.73 10^3/uL (3.29-11.43)
[2023-08-14 11:57] LABS: Alkaline Phosphatase 67 U/L (40-130); Blood Urea Nitrogen 9 mg/dL (6-20); Calcium 9.3 mg/dL (8.5-10.5); Carbon Dioxide 21 mmol/L (22-29); Chloride 103 mmol/L (98-107); Creatinine Clr Calc Pharmacy 179.1084; Globulin 4.3 g/dL (1.3-4.6); Glomerular Filtration Rate 134.3 mL/min (90-130); Glucose 94 mg/dL (65-115); Magnesium 2.4 mg/dL (1.7-2.3); Total Bilirubin 0.3 mg/dL (0.15-1.2); Total Protein 8.3 g/dL (6.6-8.7)
[2023-08-14 12:10] LABS: Lithium 0.5 mmol/L (0.6-1.2)
[2023-08-14 12:16] LABS: Alanine Aminotransferase 18 U/L (0-41); Anion Gap 18.4 (5-19); Aspartate Amino Transferase 23 U/L (0-40); Osmolality Calculated 284 mOsm/kg (285-295); Potassium 4.4 mmol/L (3.5-5.1); Sodium 138 mmol/L (136-145)
--- NOTE | 2023-08-14 12:22 | PC.NURSE ---
PATIENT UNABLE TO COOPERATE FOR VITAL SIGNS. PATIENT IS ALERT AND STABLE AT THIS TIME. WILL ATTEMPT VITALS AGAIN AT A FUTURE TIME
[2023-08-14 12:26] LABS: Add Urine Microscopic? NO; Charge for UA Resulting for Rev
[2023-08-14 12:37] LABS: Bilirubin Urine Neg (Negative); Blood Urine Neg (Negative); Glucose Urine UA Norm (Normal); Ketones Urine Negative (Negative); Leukocyte Esterase Urine Negative (Negative); Nitrate Urine Negative (Negative); Protein Urine Neg (Negative); Urine Appearance Clear (CLEAR); Urine Color Yellow (Yellow); Urobilinogen Urine Neg (Negative); pH Urine 6.5 (5-7)
[2023-08-14 13:57] VITALS: BP 147/87; PULSE 115; RESP 25; TEMP 36.9; O2SAT 93
== END 2023-08-14 13:59 | disposition home or self-care (01) ==
PROVIDERS: Family Medicine; Emergency Provider Emergency Medicine; PCP Nurse Practitioner
DX: R29.90 Unspecified symptoms and signs involving the nervous system (principal); G40.309 Generalized idiopathic epilepsy and epileptic syndromes, not intractable, without status epilepticus; F98.8 Other specified behavioral and emotional disorders with onset usually occurring in childhood and adolescence; F84.0 Autistic disorder
CPT/HCPCS: 36415; 71045; 80053; 80178; 81003; 83735; 85025; 86140; 99284; G0463; J2060

== ENCOUNTER → 2024-03-09 08:17 | Outpatient (BNVA) | payer MEDICAID, SELFPAY | PROVIDERS: PCP Nurse Practitioner; Visit Provider Psychiatry & Neurology Psychiatry | DX: Z79.899 Other long term (current) drug therapy (principal) | CPT/HCPCS: 80053; 80061; 80164; 80178; 84443 ==

== ENCOUNTER → 2024-05-08 08:58 | Outpatient (BNVA) | payer MEDICAID, SELFPAY | PROVIDERS: PCP Nurse Practitioner; Visit Provider Nurse Practitioner | DX: E55.9 Vitamin D deficiency, unspecified (principal); D69.6 Thrombocytopenia, unspecified; T56.891A Toxic effect of other metals, accidental (unintentional), initial encounter; E03.2 Hypothyroidism due to medicaments and other exogenous substances; Z79.899 Other long term (current) drug therapy | CPT/HCPCS: 80053; 82306; 84443; 85025 ==